=== PATIENT | male | born 1955 | race Two or more races ===

== ENCOUNTER 2020-05-30 13:55 | Inpatient (IN) | payer OTHER ==
[~2020-05-30] VITALS: Ht 167.6 cm; Wt 64.0 kg
[2020-05-30] MEDS ORDERED: IV NS 0.9% 1,000 ML IV ONE (14:02)
--- NOTE | 2020-05-30 14:05 | NUR ---
Patient BIBra 102, from home, c/o headache and hypotension 77/40, on room air, breathing evenly and unlabored. connected to the monitor and pulse ox. kept comfortable, will continue to monitor accordingly.
[2020-05-30] MEDS ORDERED: CEFTRIAXONE 1GM BAG (ER ONLY) 50 ML IV ONE (14:10)
--- NOTE | 2020-05-30 14:15 | NUR ---
Lighting Specialist at bedside for blood draw.
--- NOTE | 2020-05-30 14:20 | NUR ---
EKG MACHINE NOT WORKING PROPERLY. UNABLE TO INFORM MD SINCE SHE IS RUNNING [employer]
[2020-05-30 14:30] LABS: BASOPHILS % (AUTO) 0.5 % (0.0-2.0); EOSINOPHILS % (AUTO) 2.5 % (0.0-6.0); HEMATOCRIT 25 % (39-51); HEMOGLOBIN 8.4 g/dL (13.5-17.5); LYMPHOCYTES # (AUTO) 0.6 /CMM (0.8-4.8); LYMPHOCYTES % (AUTO) 9.7 % (20.0-44.0); MEAN CORPUSCULAR HGB CONC 34 g/dl (31.0-36.0); MEAN CORPUSCULAR VOLUME 89 fL (80-96); MONOCYTES # (AUTO) 0.5 /CMM (0.1-1.30); MONOCYTES % (AUTO) 8.6 % (2.0-12.0); NEUTROPHILS # (AUTO) 4.8 /CMM (1.8-8.9); NEUTROPHILS % (AUTO) 78.7 % (43.0-81.0); PLATELET COUNT (AUTO) 211 /CMM (150-450); RED BLOOD CELL COUNT(AUTO) 2.75 MIL/uL (4.5-6.0); WHITE BLOOD COUNT (AUTO) 6.1 K/uL (4.3-11.0)
[2020-05-30] MEDS ORDERED: CEFTRIAXONE 1GM BAG (ER ONLY) 1 GM/50 ML PIGGYBACK IV ONE (14:30)
--- NOTE | 2020-05-30 14:30 | NUR ---
MADE AWARE OF ISSUE WITH EKG MACHINE. BIOMED CONTACTED AND ON THE WAY TO ER.
[2020-05-30 14:39] LABS: CALCIUM, SERUM 7.7 mg/dL (8.5-10.1); CARBON DIOXIDE 29 mmol/L (21-32); CHLORIDE 94 mmol/L (98-107); CREATININE 4.5 mg/dL (0.6-1.3); GLUCOSE 195 mg/dL (74-106); POTASSIUM 3.8 mmol/L (3.5-5.1); SODIUM SERUM 132 mmol/L (136-145); UREA NITROGEN, BLOOD 41 mg/dL (7-18)
[2020-05-30 14:53] LABS: ALANINE AMINOTRANSFERASE 21 U/L (12-78); ALBUMIN 3.2 g/dL (3.4-5.0); ALKALINE PHOSPHATASE 105 U/L (46-116); ASPARTATE AMINOTRANSFERASE 18 U/L (15-37); B-TYPE NATRIURETIC PEPTIDE 35317 PG/ML (0-125); BILIRUBIN,TOTAL 0.4 mg/dL (0.2-1.0); TOTAL PROTEIN, SERUM 7.2 g/dL (6.4-8.2)
[2020-05-30 15:12] LABS: CREATINE KINASE, TOTAL 512 U/L (39-308)
[2020-05-30 15:18] LABS: C-REACTIVE PROTEIN < 0.2 mg/dL (0.0-0.9)
[2020-05-30 15:21] LABS: D-DIMER 6.12 mg/L(FEU (0.17-0.50)
--- NOTE | 2020-05-30 15:45 | NUR ---
MOVE SHEET SUBMITTED
[2020-05-30] MEDS ORDERED: HYDROCODONE/APAP 5/325MG TABLET ONE (15:56)
[2020-05-30] MEDS ORDERED: HYDROCODONE/APAP 5/325MG TABLET PO ONE (16:00)
--- NOTE | 2020-05-30 16:10 | NUR ---
received a call from Victoria (yosef GUERRERO) and report given and will call back for more info.
[2020-05-30] MEDS ORDERED: GLIM1TAB18 PO (16:30)
[2020-05-30] MEDS ORDERED: ACET325C7 PO (16:30)
[2020-05-30] MEDS ORDERED: ESCI5TAB PO (16:30)
[2020-05-30] MEDS ORDERED: FLUT16SP NS (16:30)
[2020-05-30] MEDS ORDERED: ALBU8.5H8 IH (16:30)
[2020-05-30] MEDS ORDERED: ATOR40TA PO (16:30)
[2020-05-30] MEDS ORDERED: NIFE30TA91 PO (16:30)
[2020-05-30] MEDS ORDERED: FERR325T30 PO (16:30)
[2020-05-30] MEDS ORDERED: ALPR0.255 PO (16:30)
--- NOTE | 2020-05-30 16:59 | NUR ---
covid 19 swab collected and sent to lab
--- NOTE | 2020-05-30 17:26 | NUR ---
CALLED DR. CLAROS [phone]
--- NOTE | 2020-05-30 18:24 | NUR ---
room 306-2 Addendum: 05/30/20 at 1825 by TBEESTEEEJO room 307-1
[2020-05-30] MEDS ORDERED: ALPRAZOLAM 0.25 MG TABLET PO PRN (18:30)
[2020-05-30] MEDS ORDERED: DEXTROSE 50%-WATER 50 ML DISP.SYRIN IV PRN (18:30)
[2020-05-30] MEDS ORDERED: INSULIN REGULAR, HUMAN 100 UNIT/ML 3 ML VIAL SQ PRN (18:30)
[2020-05-30] MEDS ORDERED: CLONIDINE HCL 0.1 MG TABLET PO PRN (18:30)
[2020-05-30] MEDS ORDERED: ZOLPIDEM TARTRATE 5 MG TABLET PO PRN (18:30)
[2020-05-30] MEDS ORDERED: ACETAMINOPHEN 325 MG TABLET PO PRN (18:30)
--- NOTE | 2020-05-30 18:30 | NUR ---
report given to Elsie RAMIREZ for elizabeth
--- NOTE | 2020-05-30 18:50 | NUR ---
ROOM ASSIGNMENT: 322-2 CALL AFTER 1900 FOR REPORT
--- NOTE | 2020-05-30 18:55 | NUR ---
wheeled patient via gurney accompanied by RN and emt in no distress. RN at bedside to assume care.
[2020-05-30] MEDS ORDERED: ALBUTEROL FS 2.5 MG/0.5 ML VIAL.NEB NEB PRN (19:30)
[2020-05-30 20:00] VITALS: BP 125/69
--- NOTE | 2020-05-30 20:00 | NUR ---
TELE/REIMBURSEMENT COUNSELOR NOTE Patient A/Ox4, ambulatory. Face is symmetrical, tongue midline. No tracheal deviation. Breath sounds even, clear, unlabored on room air. No sob or acute distress noted. Skin is warm, pink, dry, appropriate for ethnicity, intact. Stitches noted in right lower quadrant, clean and intact, no redness. IV site LAC 18g saline locked, patent and intact. Right chest permacath noted, clean and intact. Abdomen small, round, non-distended. Bowel sounds hypoactive in all quadrants. Last BM was 05/29. Patient void via urinal, clear yellow urine without difficulty. Pulses 2+. CRP <3seconds. Mild weakness noted on left lower and upper extremities. Numbness noted in left toes. Full ROM in all extremities, rn manager strength 5+. Bed in low position, wheels locked, side rails up x2, call light within reach.
[2020-05-30] MEDS: BLOOD SUGAR DIAGNOSTIC 1 EACH STRIP IN SCH (21:51)
[2020-05-30] MEDS ORDERED: LATANOPROST EYE DROP 0.005% 2.5 ML BOTTLE EACHEYE SCH (22:00)
[2020-05-30] MEDS ORDERED: ATORVASTATIN 40 MG TABLET PO SCH (22:00)
[2020-05-31 00:30] VITALS: BP 109/58
[2020-05-31 04:00] VITALS: BP 106/66
[2020-05-31] MEDS: BLOOD SUGAR DIAGNOSTIC 1 EACH STRIP IN SCH ×3 (06:32→17:06)
--- NOTE | 2020-05-31 06:51 | NUR ---
TELE/RN CLOSING NOTE Patient A/Ox4, ambulatory. Breath sounds even, clear, unlabored on room air. No sob or acute distress noted. Skin is warm, pink, dry, appropriate for ethnicity, intact. Stitches noted in right lower quadrant, clean and intact, no redness. IV site LAC 18g saline locked, patent and intact. Right chest permacath noted, clean and intact. Patient void via urinal, clear yellow urine without difficulty, 250 ml. No bowel movement this shift. Bed in low position, wheels locked, side rails up x2, call light within reach.
[2020-05-31 08:00] VITALS: BP 124/68
--- NOTE | 2020-05-31 08:30 | NUR ---
RN NOTES RECEIVED PATIENT IN THE BED STABLE REFUSED PAIN, ON O2-2LNC. V/S WNL, SEEN HOSPITALIST Dr NICOLAS NEW ORDER IS DISCHARGE HOME AFTER DIALYSIS. SAFETY PRECAUTION MAINTAINED ALL THE TIME.
[2020-05-31] MEDS ORDERED: ESCITALOPRAM OXALATE (10 MG) 10 MG TABLET PO SCH (09:00)
[2020-05-31] MEDS ORDERED: GLIMEPIRIDE 1 MG TABLET PO SCH (09:00)
[2020-05-31] MEDS ORDERED: FLUTICASONE PROPIONATE 16 GM BOTTLE NS SCH (09:00)
[2020-05-31] MEDS: TIMOLOL 0.25% SOL OPHTH 10 ML BOTTLE EACHEYE SCH ×2 (09:00→17:00)
[2020-05-31] MEDS ORDERED: FERROUS SULFATE (325 MG) 325 MG/TAB TABLET PO SCH (09:00)
--- NOTE | 2020-05-31 10:22 | NUR ---
RN NOTE RECEIVED CALL FROM [facility] REPORTING CK=MB 13.5. ASSIGNED RN ESTER IS MADE AWARE.
--- NOTE | 2020-05-31 12:39 | NUR ---
RN NOTES BS-140 MG/DL REFUSED COVERAGE , REFUSED LUNCH.
--- NOTE | 2020-05-31 13:00 | NUR ---
RN NOTES SEEN PATIENT BY ROLE PLAYER, HEMODIALYSIS CONSENT FORM SIGNED.
--- NOTE | 2020-05-31 16:25 | NUR ---
rn notes patient getting hemodialysis at this time, bs-105 mg/dl.
--- NOTE | 2020-05-31 18:53 | NUR ---
RN NOTES PATIENT HEMODIALYSIS FINISHED OUTPUT WAS 1000L, WILL DISCHARGED HOME SELF CARE. ENDORSED ONCOMING NURSE FOLLOW PLAN OF CARE..
--- NOTE | 2020-05-31 19:22 | NUR ---
metal furniture assembler notes patient discharge at this time going home self care, patient stable, v/s wnl, med reconciliation and discharge orders reviewed and explained to. patient verbalized understanding. patient will follow pcp, belonging with the patient. escorted patient to the lobby for safety.patient steel pickler by uber.
== END 2020-05-31 19:26 | disposition home or self-care (01) | DRG 816 ==
LOC: ER 14:05 → TELE 18:27
PROVIDERS: ADMIT Internal Medicine; ATTEND Internal Medicine
PROC: 5A1D70Z Performance of Urinary Filtration, Intermittent, Less than 6 Hours Per Day (ICD-10-PCS; principal; 2020-05-31)
DX: T46.1X1A Poisoning by calcium-channel blockers, accidental (unintentional), initial encounter (principal); E11.22 Type 2 diabetes mellitus with diabetic chronic kidney disease; N18.6 End stage renal disease; Z99.2 Dependence on renal dialysis; F32.9 Major depressive disorder, single episode, unspecified; E78.5 Hyperlipidemia, unspecified; F41.9 Anxiety disorder, unspecified; I12.0 Hypertensive chronic kidney disease with stage 5 chronic kidney disease or end stage renal disease; J45.909 Unspecified asthma, uncomplicated; D63.1 Anemia in chronic kidney disease; I95.2 Hypotension due to drugs; Y92.009 Unspecified place in unspecified non-institutional (private) residence as the place of occurrence of the external cause; H40.9 Unspecified glaucoma; H54.62 Unqualified visual loss, left eye, normal vision right eye; Z79.84 Long term (current) use of oral hypoglycemic drugs
CPT/HCPCS: 36415; 70450-TC; 71045-TC; 80053-TC; 82550-TC; 82553; 82962-TC; 83605-TC; 83880; 84484-TC; 85025-TC; 85378-TC; 85730-TC; 86140-TC; 87040-TC; 87081-TC; 90935-TC; C9803-CS; G0378; J0696; J1815; J7030

== ENCOUNTER 2021-04-18 09:49 | Inpatient (IN) | payer MEDICARE, OTHER ==
[~2021-04-18] VITALS: Ht 167.6 cm; Wt 57.3 kg
[2021-04-18] VITALS (8 sets, daily range): BP systolic 52–179; BP diastolic 39–93
[~2021-04-18 09:49] MED LIST: ACET325C7 PO; ALBU8.5H8 IH; ALPR0.255 PO; ATOR40TA PO; ESCI5TAB PO; FERR325T30 PO; FLUT16SP; GLIM1TAB18 PO; NIFE30TA91 PO
--- NOTE | 2021-04-18 10:05 | NUR ---
R FOOT/ R KNEE SWELLING SINCE YESTERDAY. LETHARGIC AND WEAK SENIOR ADMINISTRATIVE SERVICES OFFICER. HYPOTENSIVE SENIOR ADMINISTRATIVE SERVICES OFFICER. PATIENT A/OX4, BREATHING EVEN AND UNLABORED, NO SOB NOTED, KEPT COMFORTABLE. PATIENT ABLE TO MOVE RIGHT LOWER EXTREMITY.
--- NOTE | 2021-04-18 10:08 | NUR ---
DR. AMES AT BEDSIDE FOR EVAL
[2021-04-18 10:24] LABS: BASOPHILS # (AUTO) 0.1 K/uL (0.0-0.2); BASOPHILS % (AUTO) 0.2 % (0.0-2.0); EOSINOPHILS % (AUTO) 0.1 % (0.0-6.0); HEMATOCRIT 31 % (39-51); HEMOGLOBIN 10.2 g/dL (13.5-17.5); LYMPHOCYTES # (AUTO) 0.8 K/uL (0.8-4.8); LYMPHOCYTES % (AUTO) 2.2 % (20.0-44.0); MEAN CORPUSCULAR HGB CONC 33 g/dl (31.0-36.0); MEAN CORPUSCULAR VOLUME 93 fL (80-96); MONOCYTES # (AUTO) 0.9 K/uL (0.1-1.30); MONOCYTES % (AUTO) 2.6 % (2.0-12.0); NEUTROPHILS # (AUTO) 33.5 K/uL (1.8-8.9); NEUTROPHILS % (AUTO) 94.9 % (43.0-81.0); PLATELET COUNT (AUTO) 300 K/uL (150-450); RED BLOOD CELL COUNT(AUTO) 3.33 MIL/uL (4.5-6.0)
[2021-04-18 10:26] LABS: CALCIUM, SERUM 8.8 mg/dL (8.5-10.1); CARBON DIOXIDE 22 mmol/L (21-32); CHLORIDE 87 mmol/L (98-107); GLUCOSE 246 mg/dL (74-106); POTASSIUM 3.9 mmol/L (3.5-5.1); SODIUM SERUM 135 mmol/L (136-145); UREA NITROGEN, BLOOD 79 mg/dL (7-18); WHITE BLOOD COUNT (AUTO) 35.2 K/uL (4.3-11.0)
[2021-04-18 10:27] LABS: CREATININE 10.1 mg/dL (0.6-1.3)
[2021-04-18] MEDS ORDERED: VANCOMYCIN 1 GM in IV D5W 250 ML IV ONE (10:30)
--- NOTE | 2021-04-18 10:30 | NUR ---
covid swab sent to lab.
--- NOTE | 2021-04-18 10:31 | NUR ---
patient verbalized that he is anuric.
[2021-04-18] MEDS: PIPERACILLIN /TAZOBACTAM 3.375 G in IV D5W 50 ML IV ONE ×2 (10:35→10:45)
--- NOTE | 2021-04-18 10:45 | NUR ---
BLOOD CULTURE SENT TO LAB. VANESSA STARTED AT 1045.
[2021-04-18 10:57] LABS: ALANINE AMINOTRANSFERASE 89 U/L (12-78); ALBUMIN 2.7 g/dL (3.4-5.0); ALKALINE PHOSPHATASE 177 U/L (46-116); ASPARTATE AMINOTRANSFERASE 57 U/L (15-37); BILIRUBIN,DIRECT 0.8 mg/dL (0.0-0.2); BILIRUBIN,TOTAL 3.3 mg/dL (0.2-1.0); TOTAL PROTEIN, SERUM 7.7 g/dL (6.4-8.2)
[2021-04-18 11:11] LABS: BAND % (MANUAL) 1 % (0.0-5.0); LYMPHOCYTES % (MANUAL) 3 % (16-48); MONOCYTES % (MANUAL) 4 % (0-11.0); NEUTROPHILS % (MANUAL) 90 (42-76)
--- NOTE | 2021-04-18 11:25 | NUR ---
US TECH AT BEDSIDE
[2021-04-18] MEDS ORDERED: CLON0.5T4 PO (11:27)
[2021-04-18] MEDS ORDERED: ASPI-1169 PO (11:27)
[2021-04-18] MEDS ORDERED: HYDR-500 PO (11:27)
[2021-04-18] MEDS ORDERED: DICL100G34 TP (11:27)
[2021-04-18] MEDS ORDERED: DORZ10DR11 EACHEYE (11:27)
[2021-04-18] MEDS ORDERED: TRAM50TA2 PO (11:27)
[2021-04-18] MEDS ORDERED: MELO-105 PO (11:27)
[2021-04-18] MEDS ORDERED: GABA-532 PO (11:27)
[2021-04-18] MEDS ORDERED: CETI10TA14 PO (11:27)
[2021-04-18] MEDS ORDERED: CEPH500C2 PO (11:27)
--- NOTE | 2021-04-18 11:45 | NUR ---
PATIENT IS RESTING, NO DISTRESS NOTED. KEPT COMFORTABLE IN BED, PROVIDED WITH WARM BLANKETS.
[2021-04-18] MEDS ORDERED: CALC667C6 PO (11:53)
--- NOTE | 2021-04-18 12:12 | NUR ---
NURSING SUP GAVE 309-1.
--- NOTE | 2021-04-18 12:14 | NUR ---
NURSING SUP GAVE UPDATED BED TO 311-1. NURSE IS ARELY.
--- NOTE | 2021-04-18 12:40 | NUR ---
Dr. Aparicio aware of troponin level, no order for aspirin at this time, per MD he'll wait for Dr. Guerrero to decide.
--- NOTE | 2021-04-18 12:45 | NUR ---
REPORT GIVEN TO ARELY RAMIREZ FOR MARIAH
--- NOTE | 2021-04-18 12:50 | NUR ---
PT. BROUGHT UP FROM ER.MADE COMFORTABLE.VS TAKEN HOOKED UP TO TELE RHYTHM SINUS RATE OF 80.
--- NOTE | 2021-04-18 13:01 | NUR ---
Patient transferred to room 311-1 via acls protocol, a/ox4, in stable condition. BP borderline low but patient is asymptomatic, denies any pain and verbally responsive. Endorsed to Brody charge nurse. Walker, shoes and shirt at bedside, endorsed to Daniela barrera.
[2021-04-18] MEDS ORDERED: clonazePAM 0.5 MG TABLET PO PRN (15:00)
[2021-04-18] MEDS ORDERED: ONDANSETRON HCL/PF 4 MG/2 ML VIAL IV PRN (15:00)
[2021-04-18] MEDS ORDERED: ASPIRIN EC 81 MG TABLET.DR PO ONE (15:00)
[2021-04-18] MEDS ORDERED: ALBUTEROL SULFATE INH 18 GM HFA.AER.AD IH PRN (15:00)
[2021-04-18] MEDS ORDERED: TRAMADOL HCL 50 MG TABLET PO PRN (15:00)
[2021-04-18] MEDS ORDERED: DEXTROSE 50%-WATER 50 ML DISP.SYRIN IV PRN (15:00)
--- NOTE | 2021-04-18 15:15 | NUR ---
DR. Tiana FRANCES HERE AND ORDERS GIVEN.
[2021-04-18] MEDS ORDERED: VANCOMYCIN POST DIALYSIS 500MG IV PRN (15:30)
[2021-04-18] MEDS ORDERED: HEPARIN SODIUM, PORCINE 5000 UNITS/1 ML VIAL SQ SCH (16:00)
[2021-04-18] MEDS: BLOOD SUGAR DIAGNOSTIC 1 EACH STRIP VI SCH ×3 (16:33→22:17)
[2021-04-18] MEDS: INSULIN REGULAR, HUMAN 100 UNIT/ML 3 ML VIAL SQ PRN (16:37)
[2021-04-18] MEDS: GABAPENTIN 100 MG CAPSULE PO SCH (16:54)
[2021-04-18] MEDS: TIMOLOL MAL/DORZOLAM HCL OPHTH 10 ML BOTTLE EACHEYE SCH (16:55)
[2021-04-18] MEDS ORDERED: CARVEDILOL 12.5 MG TABLET PO SCH (17:00)
--- NOTE | 2021-04-18 17:50 | NUR ---
PHOTOS TAKEN AND PLACED IN CHART.
--- NOTE | 2021-04-18 18:00 | NUR ---
DR. FRANCES NOTIFIED OF LATEST LACTIC ACID LEVEL AND 3 PM TROPONIN.
--- NOTE | 2021-04-18 18:50 | NUR ---
UNABLE TO OBTAIN URINE SAMPLE AT THIS TIME,PT. STATES UNABLE TO VOID.
--- NOTE | 2021-04-18 19:00 | NUR ---
DIALYSIS CONSENT OBTAINED.
--- NOTE | 2021-04-18 19:46 | NUR ---
RN NOTES PT RECEIVED ASLEEP IN BED PT IN NO RESPIRATORY DISTRESS OR PAIN AT THIS TIME. PT NOTED WITH RIGHT CHEST WALL HD CATH AND PREMATURE AV FISTULA ON THE LEFT ARM. ALL PT NEEDS MET AT THIS TIME. SAFETY PRECAUTIONS FOLLOWED AT ALL TIMES. CALL LIGHT AND TABLE WITHIN REACH WILL CONTINUE TO MONITOR.
--- NOTE | 2021-04-18 20:30 | NUR ---
RN NOTES PT B/P 62/39 RECHECKED 59/52 PT STILL RESPONSIVE BUT ANXIOUS CONTACTED DOCTOR YVROSE. RECEIVED ORDERS TO GIVE 500 CC NS BOLUS AND TRANSFER PT TO ICU ORDERS NOTED.
--- NOTE | 2021-04-18 20:45 | NUR ---
RN NOTES PT TRANSFERRED TO ICU WITH ACLS PROTOCOL. PHYSICAL THERAPY TEACHER CALLED PT WAS DESATURATING PUT ON A NON REBREATHER.
[2021-04-18] MEDS ORDERED: IV NS 0.9% 500 ML IV ONE ×2 (21:00→22:00)
--- NOTE | 2021-04-18 21:10 | NUR ---
RN NOTE RECEIVED PATIENT IN BED RESTING LETHARGIC, A/OX1 ONLY NAME,ON 3L OXYGEN VIA NASAL CANNULA O2:100% IV SITE IS ON RIGHT AC INTACT PATENT AND RIGHT PERM-CATH FOR HD,LEFT SIDE WEAKNESS NOT BP AND LAB DRAW ON LEFT SIDE,SAFETY MEASURE IMPLEMENT BED IN LOW POSITON AND LOCKED CONTINUE TO MONITOR
[2021-04-18] MEDS: ZOSYN IVPB 2.25 G in IV D5W 50ml IV SCH (21:22)
[2021-04-18] MEDS ORDERED: ATORVASTATIN 40 MG TABLET PO SCH ×2 (22:00)
--- NOTE | 2021-04-18 22:00 | NUR ---
RN NOTE LIPITOR NOT GIVEN DUE TO PATIENT CONDITION "LETHARGIC" CONTINUE TO MONITOR.
[2021-04-18] MEDS: *INSULIN REGULAR(HUMULIN R)HUM 100 UNIT/ML VIAL SQ PRN (22:18)
--- NOTE | 2021-04-18 23:57 | NUR ---
RN NOTE RECEIVED CRITICAL LAB RESULTS TROPONIN 2.[address] YVROSE FLOR HE ORDERED MONITOR,CONTINUE TO MONITOR.
[2021-04-19] VITALS (131 sets, daily range): BP systolic 43–214; BP diastolic 18–143
[2021-04-19] MEDS ORDERED: NOREPINEPHRINE 8MG/250ML RTU 250 ML IV ONE (03:30)
[2021-04-19] MEDS: NOREPINEPHRINE 8 MG in IV NS 0.9% 242 ML IV PRN ×4 (03:34→18:47)
--- NOTE | 2021-04-19 03:34 | NUR ---
RN NOTE STARTED LEVOPHED 0.1MCG/KG/MIN BP 66/40 HR 68 CONTINUE TO MONITOR.
[2021-04-19 04:41] LABS: BASOPHILS % (AUTO) 0.2 % (0.0-2.0); HEMATOCRIT 27 % (39-51); HEMOGLOBIN 9.1 g/dL (13.5-17.5); LYMPHOCYTES # (AUTO) 0.7 K/uL (0.8-4.8); LYMPHOCYTES % (AUTO) 2.6 % (20.0-44.0); MEAN CORPUSCULAR HGB CONC 33 g/dl (31.0-36.0); MEAN CORPUSCULAR VOLUME 93 fL (80-96); MONOCYTES # (AUTO) 1.3 K/uL (0.1-1.30); MONOCYTES % (AUTO) 4.9 % (2.0-12.0); NEUTROPHILS # (AUTO) 24.2 K/uL (1.8-8.9); NEUTROPHILS % (AUTO) 92.3 % (43.0-81.0); PLATELET COUNT (AUTO) 251 K/uL (150-450); RED BLOOD CELL COUNT(AUTO) 2.93 MIL/uL (4.5-6.0); WHITE BLOOD COUNT (AUTO) 26.2 K/uL (4.3-11.0)
[2021-04-19 05:01] LABS: ALANINE AMINOTRANSFERASE 80 U/L (12-78); ALBUMIN 1.8 g/dL (3.4-5.0); ALKALINE PHOSPHATASE 152 U/L (46-116); ASPARTATE AMINOTRANSFERASE 119 U/L (15-37); BILIRUBIN,TOTAL 2.8 mg/dL (0.2-1.0); CALCIUM, SERUM 7.6 mg/dL (8.5-10.1); CARBON DIOXIDE 20 mmol/L (21-32); CHLORIDE 89 mmol/L (98-107); GLUCOSE 136 mg/dL (74-106); MAGNESIUM 2.9 mg/dL (1.8-2.4); POTASSIUM 4.8 mmol/L (3.5-5.1); SODIUM SERUM 135 mmol/L (136-145); TOTAL PROTEIN, SERUM 6.5 g/dL (6.4-8.2)
[2021-04-19] MEDS: ZOSYN IVPB 2.25 G in IV D5W 50ml IV SCH ×3 (05:01→21:00)
[2021-04-19 05:10] LABS: BAND % (MANUAL) 16 % (0.0-5.0); BASOPHILS % (MANUAL) 0 % (0.0-2.0); EOSINOPHILS % (MANUAL) 0 % (0-4); LYMPHOCYTES % (MANUAL) 3 % (16-48); METAMYELOCYTES % 1 % (0-0); MONOCYTES % (MANUAL) 10 % (0-11.0); NEUTROPHILS % (MANUAL) 70 (42-76)
[2021-04-19 05:42] LABS: CREATININE 10.5 mg/dL (0.6-1.3); UREA NITROGEN, BLOOD 96 mg/dL (7-18)
[2021-04-19 05:43] LABS: PHOSPHORUS > 9.0 mg/dL (2.5-4.9)
--- NOTE | 2021-04-19 06:33 | NUR ---
RN NOTED PATIENT REMAINS ON LETHARGIC EYE CLOSED ON LEVOPHED 0.3MCG/KG/MIN IV SITE IS ON RIGHT AC AND RIGHT WRIST INTACT PATENT,RIGHT UPPER CHEST HD CATH,ON 2L OXYGEN VIA NASAL CANNULA O2:99% NO BP NO LAB DRAW ON LEFT ARM FOR OLD FISULA,NO URINE NOTED ONE BOWEL MOVEMENT IN SOLE STAPLER WELT,ALL DUE IV MEDS GIVEN HELD PO MEDS,KEPT CLEAN AND DRY ALL THE TIME,ALL NEEDS MET ENDORSE NEXT COMING SHIFT FOR CONTINUATION OF CARE
--- NOTE | 2021-04-19 07:54 | NUR ---
rn notes Get order via hospitalist midline insertion. seen patient via wound nurse patient need Isoflex bed, take a picture on right knee open wound. patient right leg swollen, and painful during touching.elevated using pillows. patient confused, has psoriases upper and lower extremities, anuric , assist turn and reposition q 2 hr.
--- NOTE | 2021-04-19 08:15 | NUR ---
WOUND CARE CONSULT: PT PRESENTS WITH RT KNEE DISCOLORATION AND DRY ESCHARS/DRY ABRASIONS WITH PROFOUND EDEMA FROM RT THIGH TO RT FOOT WITH INTACT BLISTER TO RT DORSAL FOOT, PRESENT ON ADMISSION. PT ALSO NOTED TO HAVE SKIN LESIONS TO LEFT ARM, PRESENT ON ADMISSION. DEFER TO PMD FOR SKIN CONDITION AND KNEE. RECOMMENDATIONS MADE FOR SKIN PROTECTION. DISCUSSED WITH NURSING STAFF. PT IS INCONTINENT OF STOOL. MD IN AGREEMENT WITH PLAN OF CARE.
[2021-04-19] MEDS ORDERED: Z GUARD REMEDY 2 OZ OINT TP PRN (08:30)
--- NOTE | 2021-04-19 08:45 | NUR ---
rn notes patient get order heparin infusion via machine printer hose Dr Wasserman. get stat order ptt .
--- NOTE | 2021-04-19 08:50 | NUR ---
rn notes seen patient via nocturnist Dr Lubin, patient will have HD today.
[2021-04-19] MEDS ORDERED: EPOETIN ALFA (10,000 UNIT) 10,000 UNIT/ML VIAL IV ONE (09:00)
[2021-04-19] MEDS ORDERED: ASPIRIN EC 81 MG TABLET.DR PO SCH (09:00)
[2021-04-19] MEDS ORDERED: ALBUMIN 5% 12.5 GM in PREMIX 1 EA IV STA (10:06)
[2021-04-19] MEDS: BLOOD SUGAR DIAGNOSTIC 1 EACH STRIP VI SCH ×4 (10:13→21:00)
[2021-04-19] MEDS: GABAPENTIN 100 MG CAPSULE PO SCH ×2 (10:17→17:24)
[2021-04-19] MEDS: cetrizine 10 MG TABLET PO SCH (10:17)
[2021-04-19] MEDS: PANTOPRAZOLE 40 MG TABLET.DR PO SCH (10:18)
[2021-04-19] MEDS: SEVELAMER CARBONATE 800 MG POWD.PACK GT SCH ×3 (10:18→17:24)
[2021-04-19] MEDS: HYDROCORTISONE SOD SUCCINATE 100 MG/2 ML VIAL IV SCH ×3 (10:18→21:00)
[2021-04-19] MEDS: ASPIRIN 81 MG TAB.CHEW PO SCH (10:22)
[2021-04-19] MEDS: Z GUARD REMEDY 2 OZ OINT TP SCH (10:25)
[2021-04-19] MEDS ORDERED: ALBUMIN 25% 50 ML IV ONE (10:30)
[2021-04-19] MEDS: HEPARIN INFUSION/D5W 500 ML IV PRN (11:01)
--- NOTE | 2021-04-19 11:01 | NUR ---
rn notes started heparin infusion on right ac area iv access on 850units/hr. seen hospitalist Dr Guerrero. patient getting ortho physician consultation, because of right leg swollen,discoloration, and painful to touch, keep it elevated using pillows.
--- NOTE | 2021-04-19 12:20 | NUR ---
RN NOTES PATIENT GETTING BILATERAL ARTERIAL DOPPLER LOWER EXTREMITIES US AT THIS TIME.
[2021-04-19] MEDS: FLUDROCORTISONE 0.1 MG TABLET PO SCH ×2 (12:21→17:25)
[2021-04-19] MEDS: NEPRO VAN 237 ML CAN PO PRN (12:55)
[2021-04-19] MEDS: FLUTICASONE PROPIONATE 16 GM BOTTLE NS SCH (12:59)
[2021-04-19] MEDS: TIMOLOL MAL/DORZOLAM HCL OPHTH 10 ML BOTTLE EACHEYE SCH ×2 (12:59→17:25)
[2021-04-19] MEDS: HYDROCODONE/APAP 5/325MG TABLET PO PRN (13:01)
[2021-04-19] MEDS: *INSULIN REGULAR(HUMULIN R)HUM 100 UNIT/ML VIAL SQ PRN (13:01)
--- NOTE | 2021-04-19 13:01 | NUR ---
RN NOTES ADMINISTERED NARCO 5/325 MG PO PRN FOR GENERALIZED PAIN 03/11 PER PATIENT , BP 98/50, P-84. BS-187 MG/DL COVERAGE. GIVEN PATIENT EATING LUNCH.
--- NOTE | 2021-04-19 13:49 | NUR ---
RN NOTES PATIENT GETTING HD AT THIS TIME. VS 107/48, P-83, R-17, T-97.8. PATIENT TOLERATED LUNCH 20% WITH ASSIST, DUE MEDICATION ADMINISTERED. WILL MONITORING.
[2021-04-19] MEDS ORDERED: EPOETIN ALFA-EPBX 10,000 UNIT/ML VIAL SQ ONE (15:00)
--- NOTE | 2021-04-19 16:51 | NUR ---
rn notes HD finished at this time, output was 1000ml.
[2021-04-19] MEDS ORDERED: ENSURE ENLIVE CHOC 237 ML CAN PO SCH (17:00)
--- NOTE | 2021-04-19 18:00 | NUR ---
RN NOTES HOLD HEPARIN INFUSION 60MINS, PER HEPARIN DOSING ORDERS, BECAUSE OF PTT RESULT IS 124.6. WILL STARTED BACK ON 1899, PTT WILL RECHECKED ON 0AM.
[2021-04-19] MEDS: INSULIN REGULAR, HUMAN 100 UNIT/ML 3 ML VIAL SQ PRN ×2 (18:46→21:19)
--- NOTE | 2021-04-19 19:00 | NUR ---
RN NOTES PATIENT EATING AT THIS TIME WITH ASSIST, TOLERATED 2%, VSS, NO COMPLAINING OF PAIN . INFUSING VANCOMYCIN 100ML/HR, AND LEVOPHED 0.4 MCG/KG/HR. BS-185 MG/DL COVERAGE GIVEN, DUE MEDICATION ADMINISTERED. SEEN PATIENT VIA ORTHO MD NO NEW ORDER, AND HE WILL FOLLOW UP PATIENT TOMORROW. ASSIST TURN AND REPOSTION Q 2 HR. RESTARTED HEPARIN DRIP AT THIS TIME 850 UNITS.
[2021-04-19] MEDS: HYDROMORPHONE 1 MG/1 ML DISP.SYRIN IV PRN (19:57)
[2021-04-20] VITALS (98 sets, daily range): BP systolic 71–174; BP diastolic 34–99
[2021-04-20] MEDS: FLUDROCORTISONE 0.1 MG TABLET PO SCH ×4 (00:05→17:39)
[2021-04-20] MEDS: NOREPINEPHRINE 8 MG in IV NS 0.9% 242 ML IV PRN ×2 (03:36→18:32)
--- NOTE | 2021-04-20 04:24 | NUR ---
patient had 3 episodes of diarrhea on my shift. Stool collected and sent to Lab for CDiff
[2021-04-20] MEDS: IV NS 0.9% 250 ML IV PRN (05:05)
[2021-04-20 05:07] LABS: BASOPHILS % (AUTO) 0.1 % (0.0-2.0); EOSINOPHILS % (AUTO) 0.4 % (0.0-6.0); HEMATOCRIT 27 % (39-51); HEMOGLOBIN 8.8 g/dL (13.5-17.5); LYMPHOCYTES # (AUTO) 0.6 K/uL (0.8-4.8); LYMPHOCYTES % (AUTO) 1.8 % (20.0-44.0); MEAN CORPUSCULAR HGB CONC 33 g/dl (31.0-36.0); MEAN CORPUSCULAR VOLUME 94 fL (80-96); MONOCYTES # (AUTO) 1.5 K/uL (0.1-1.30); MONOCYTES % (AUTO) 4.7 % (2.0-12.0); NEUTROPHILS # (AUTO) 30.3 K/uL (1.8-8.9); PLATELET COUNT (AUTO) 269 K/uL (150-450); RED BLOOD CELL COUNT(AUTO) 2.87 MIL/uL (4.5-6.0)
[2021-04-20 05:22] LABS: ALBUMIN 1.6 g/dL (3.4-5.0); MAGNESIUM 2.9 mg/dL (1.8-2.4); TOTAL PROTEIN, SERUM 6.6 g/dL (6.4-8.2)
[2021-04-20 05:23] LABS: POTASSIUM 4.6 mmol/L (3.5-5.1)
[2021-04-20] MEDS: HYDROCORTISONE SOD SUCCINATE 100 MG/2 ML VIAL IV SCH ×3 (05:23→20:55)
[2021-04-20] MEDS: ZOSYN IVPB 2.25 G in IV D5W 50ml IV SCH (05:23)
[2021-04-20 05:24] LABS: BILIRUBIN,TOTAL 1.9 mg/dL (0.2-1.0); CALCIUM, SERUM 8.8 mg/dL (8.5-10.1); CREATININE 6.7 mg/dL (0.6-1.3); PHOSPHORUS 6.8 mg/dL (2.5-4.9)
[2021-04-20 05:32] LABS: WHITE BLOOD COUNT (AUTO) 32.5 K/uL (4.3-11.0)
[2021-04-20 05:36] LABS: BAND % (MANUAL) 14 % (0.0-5.0); EOSINOPHILS % (MANUAL) 1 % (0-4); LYMPHOCYTES % (MANUAL) 3 % (16-48); METAMYELOCYTES % 1 % (0-0); MONOCYTES % (MANUAL) 4 % (0-11.0); MYELOCYTES % 1 % (0-0); NEUTROPHILS % (MANUAL) 76 (42-76)
[2021-04-20] MEDS: BLOOD SUGAR DIAGNOSTIC 1 EACH STRIP VI SCH ×4 (07:58→22:47)
[2021-04-20] MEDS: INSULIN REGULAR, HUMAN 100 UNIT/ML 3 ML VIAL SQ PRN ×4 (07:59→22:55)
[2021-04-20] MEDS: FLUTICASONE PROPIONATE 16 GM BOTTLE NS SCH (08:49)
[2021-04-20] MEDS: SEVELAMER CARBONATE 800 MG POWD.PACK GT SCH ×3 (08:50→17:39)
[2021-04-20] MEDS: PANTOPRAZOLE 40 MG TABLET.DR PO SCH (08:51)
[2021-04-20] MEDS: cetrizine 10 MG TABLET PO SCH (08:51)
[2021-04-20] MEDS: GABAPENTIN 100 MG CAPSULE PO SCH ×2 (08:51→17:39)
[2021-04-20] MEDS: TIMOLOL MAL/DORZOLAM HCL OPHTH 10 ML BOTTLE EACHEYE SCH ×2 (08:51→17:39)
[2021-04-20] MEDS: Z GUARD REMEDY 2 OZ OINT TP SCH (08:51)
[2021-04-20] MEDS: ASPIRIN 81 MG TAB.CHEW PO SCH (08:51)
[2021-04-20] MEDS: INSULIN GLARGINE, 100 UNIT/ML CARTRIDGE SQ SCH (12:33)
[2021-04-20] MEDS: CEFEPIME 1 GM in IV D5W 50 ML IV SCH (13:25)
[2021-04-20] MEDS: METRONIDAZOLE 500 MG TABLET PO SCH ×2 (14:09→20:55)
[2021-04-20] MEDS: HEPARIN INFUSION/D5W 500 ML IV PRN (18:31)
--- NOTE | 2021-04-20 18:44 | NUR ---
RN NOTE 0715: Received patietn lethargic. With BERNARDA midline intact, with Heparin 650u/hr, Levo 0.1, will titrate as ordered. RSC HD cath intact. Right leg enlarged due to cellulitis, noted with blisters. 0930: S/E by Dr. Dee, no new order at this time. 1200: S/E by Dr. Guerrero, with order of MRCP. Noted with x2 BM but not watery at this time. 1600: done with MRCP, no any significant changes noted. 183: Still on Levo at 0.1, see IV spreadsheet for titration. Able to eat 75% for dinner. Kept clean, warm and dry. Needs attended. Still lethargic.
--- NOTE | 2021-04-20 19:30 | NUR ---
RN NOTES Received patient in bed AOX2, on 2l O2 sat via NC. Breathing normal no SOB noted. Respiration even non labored. Skin warm and dry to touch. IV's intact Gigi is running at 0.1 and heparin running at 600u/hr tolerating well. RT perm cath for HD intact no bleeding noted.Tele monitor SR in 70s. Safety measures in place, call light within reach. Will cont to monitor for elizabeth.
[2021-04-21] VITALS (103 sets, daily range): BP systolic 59–179; BP diastolic 13–105
[2021-04-21 04:17] LABS: BASOPHILS % (AUTO) 0.1 % (0.0-2.0); EOSINOPHILS % (AUTO) 0.1 % (0.0-6.0); HEMATOCRIT 27 % (39-51); LYMPHOCYTES # (AUTO) 0.7 K/uL (0.8-4.8); MEAN CORPUSCULAR HGB CONC 33 g/dl (31.0-36.0); MEAN CORPUSCULAR VOLUME 93 fL (80-96); MONOCYTES # (AUTO) 0.8 K/uL (0.1-1.30); MONOCYTES % (AUTO) 2.4 % (2.0-12.0); NEUTROPHILS # (AUTO) 33.9 K/uL (1.8-8.9); NEUTROPHILS % (AUTO) 95.4 % (43.0-81.0); PLATELET COUNT (AUTO) 169 K/uL (150-450); RED BLOOD CELL COUNT(AUTO) 2.95 MIL/uL (4.5-6.0)
[2021-04-21 04:28] LABS: WHITE BLOOD COUNT (AUTO) 35.5 K/uL (4.3-11.0)
[2021-04-21] MEDS: HYDROCORTISONE SOD SUCCINATE 100 MG/2 ML VIAL IV SCH ×3 (05:00→11:17)
[2021-04-21] MEDS: METRONIDAZOLE 500 MG TABLET PO SCH ×3 (05:00→21:09)
[2021-04-21 05:11] LABS: BAND % (MANUAL) 29 % (0.0-5.0); EOSINOPHILS % (MANUAL) 0 % (0-4); LYMPHOCYTES % (MANUAL) 2 % (16-48); METAMYELOCYTES % 5 % (0-0); MONOCYTES % (MANUAL) 2 % (0-11.0); NEUTROPHILS % (MANUAL) 62 (42-76)
[2021-04-21 05:26] LABS: BILIRUBIN,TOTAL 1.6 mg/dL (0.2-1.0); CALCIUM, SERUM 8.9 mg/dL (8.5-10.1); CREATININE 7.3 mg/dL (0.6-1.3); POTASSIUM 4.6 mmol/L (3.5-5.1); TOTAL PROTEIN, SERUM 6.6 g/dL (6.4-8.2)
[2021-04-21 06:07] LABS: ALBUMIN 1.5 g/dL (3.4-5.0)
--- NOTE | 2021-04-21 07:11 | NUR ---
RN NOTES No changes noted during shift cont with IV drips tolerating well. Breathing normal no SOB noted , respiration even non labored. IV'S intact no s/s of bleeding noted. AM care provided, kept clean and comfortable. RT perm cath for HD intact no bleeding noted. Safety measures in place, call light within reach. Will endorse to AM nurse for elizabeth.
[2021-04-21] MEDS: SEVELAMER CARBONATE 800 MG POWD.PACK GT SCH ×3 (07:42→17:31)
[2021-04-21] MEDS: PANTOPRAZOLE 40 MG TABLET.DR PO SCH (07:42)
[2021-04-21] MEDS: BLOOD SUGAR DIAGNOSTIC 1 EACH STRIP VI SCH ×4 (08:00→21:24)
[2021-04-21] MEDS: INSULIN REGULAR, HUMAN 100 UNIT/ML 3 ML VIAL SQ PRN ×2 (08:00→11:22)
[2021-04-21] MEDS: cetrizine 10 MG TABLET PO SCH (08:06)
[2021-04-21] MEDS: GABAPENTIN 100 MG CAPSULE PO SCH ×2 (08:06→17:31)
[2021-04-21] MEDS: ASPIRIN 81 MG TAB.CHEW PO SCH (08:07)
[2021-04-21] MEDS: FLUDROCORTISONE 0.1 MG TABLET PO SCH ×2 (08:07→17:31)
[2021-04-21] MEDS: FLUTICASONE PROPIONATE 16 GM BOTTLE NS SCH (08:07)
[2021-04-21] MEDS: TIMOLOL MAL/DORZOLAM HCL OPHTH 10 ML BOTTLE EACHEYE SCH ×2 (08:08→17:42)
[2021-04-21] MEDS: Z GUARD REMEDY 2 OZ OINT TP SCH (08:09)
[2021-04-21] MEDS: INSULIN GLARGINE, 100 UNIT/ML CARTRIDGE SQ SCH (08:19)
[2021-04-21] MEDS: INSULIN ASPART/LISPRO 100 UNIT/ML CARTRIDGE SQ SCH ×3 (09:30→17:35)
--- NOTE | 2021-04-21 10:29 | NUR ---
RN NOTE 0715: Received patient lethargic, A/Ox3. With BERNARDA midline intact. On Heparin 600 u/hr and Levo 0.1mcg, will titrate as ordered. Right SC HD cath intact. Right leg swollen. Will take pic per wound nurse, knee discoloration and blisters noted and worse per wound nurse, aware. Titrated off O2 supplement, tolerated room air at this time. Afebrile at this time. 0940: S/E by Dr. Guerrero, new orders carried out. MD aware patient not eating much but able to finish Nepro milk. 1015: S/E by Dr. Lubin, new orders carried out. 1025: No any significant changes noted at this time. Kept clean, warm and dry. Needs attended.
[2021-04-21] MEDS ORDERED: EPOETIN ALFA-EPBX 10,000 UNIT/ML VIAL IV ONE (10:30)
[2021-04-21] MEDS: NEPRO VAN 237 ML CAN PO PRN (11:30)
[2021-04-21] MEDS: CEFEPIME 1 GM in IV D5W 50 ML IV SCH (13:49)
--- NOTE | 2021-04-21 15:27 | NUR ---
RN NOTE HD ongoing. visited, updated re: patient's condition. Endorsed care to Ana Laura RAMIREZ.
--- NOTE | 2021-04-21 15:30 | NUR ---
rn notes patient getting HD at this time, vvs, no acute respiratory distress, will monitoring.
--- NOTE | 2021-04-21 16:25 | NUR ---
holly mata finished HD at this time no output this time just cleaning.
[2021-04-21] MEDS: NOREPINEPHRINE 8 MG in IV NS 0.9% 242 ML IV PRN (17:27)
--- NOTE | 2021-04-21 18:39 | NUR ---
RN NOTES BS-128 MG/DL ADMINISTERED HUMALOG 4 U, DUE MEDICATION ADMINISTERED, SKIN CARE DONE, TOTAL ASSIST EATING DINNER TOLERATED 20%. INFUSING LEVOPHED 0.08 MCG/KG/HR, HEPARIN 600 U, AND NS AT 10ML/HR ON RIGHT MIDLINE. CALL LIGHT WITHIN TO REACH. PATIENT ANURIC, BM X1. CALL LIGHT WITHIN TO REACH. ENDORSED ONCOMING NURSE FOLLOW MARIAH.
--- NOTE | 2021-04-21 19:15 | NUR ---
RN OPENING NOTES: RECEIVED PT A/OX2-3 IN BED RESTING COMFORTABLY. PATIENT IN NO S/SX OF ACUTE DISTRESS AT THIS TIME. NO SOB NOTED. PATIENT'S BREATHING IS EVEN AND UNLABORED. PATIENT IS ON ROOM AIR; TOLERATING WELL WITH 02 SAT OF 98% AT THE TIME OF RECEIVED. PATIENT ON TELE MONITORING READING SINUS RHYTHM HR IS @90s AT THE TIME OF RECEIVED. PATIENT ON RENAL STANDARD DIET; TOLERATES WELL. NOTED IV SITE ON R WRIST #20 AND R UA MIDLINE #18;BOTH PATENT, INTACT AND FLUSHING WELL; NO S/S OF INFECTION OR INFILTRATION. PT ALSO HAS R CHEST HD CATH SECURED AND INTACT NO SIGNS OF INFECTION. PT HAS A RUNNING HEPARIN DRIP @600UNITS/HR (12MLS/HR) PER [facility] PROTOCOL ORDERED. PT ALSO HAS A RUNNING LEVOPHED RECEIVED @0.08MCG/KG/MIN (8.709MLS/HR) MONITORED AND TITRATED PER PROTOCOL. SAFETY MEASURES HAVE BEEN PROVIDED AND IMPLEMENTED. PATIENT BED ALARM IS ON. HEAD OF BED ELEVATED. BED IS LOCKED, IN LOWEST POSITION AND SIDE RAILS UP. CALL LIGHT WITHIN REACH OF THE PATIENT. APPLICABLE ISOLATION PRECAUTIONS IN PLACE. WILL CONTINUE TO MONITOR AND REASSESS FOR ANY CHANGES AND WILL CARRY OUT ANY ONGOING AND ACTIVE MD ORDER.
[2021-04-21] MEDS: *INSULIN REGULAR(HUMULIN R)HUM 100 UNIT/ML VIAL SQ PRN (21:27)
--- NOTE | 2021-04-21 23:00 | NUR ---
RN NOTES PATIENT REMAINED TO BE IN NO SIGNS OF ACUTE RESPIRATORY DISTRESS , VITAL SIGNS WNL AT THIS TIME. WILL CONTINUE TO MONITOR AND REASSESS FOR ANY CHANGES THROUGHOUT THE SHIFT.
[2021-04-22] VITALS (68 sets, daily range): BP systolic 63–138; BP diastolic 31–97
--- NOTE | 2021-04-22 04:00 | NUR ---
RN NOTES NO NOTED CHANGES IN PATIENT CONDITION AT THIS TIME; PATIENT VITALS STABLE, NO SIGNS OF ACUTE RESPIRATORY DISTRESS. AM PATIENT CARE RENDERED. CASHIER RECEPTIONIST MADE AWARE. WILL CONTINUE TO MONITOR AND REASSESS FOR ANY CHANGES THROUGHOUT THE SHIFT.
[2021-04-22] MEDS: METRONIDAZOLE 500 MG TABLET PO SCH ×3 (04:19→20:25)
[2021-04-22 04:45] LABS: BASOPHILS % (AUTO) 0.1 % (0.0-2.0); HEMATOCRIT 26 % (39-51); HEMOGLOBIN 8.5 g/dL (13.5-17.5); LYMPHOCYTES # (AUTO) 0.7 K/uL (0.8-4.8); LYMPHOCYTES % (AUTO) 2.5 % (20.0-44.0); MEAN CORPUSCULAR HGB CONC 33 g/dl (31.0-36.0); MEAN CORPUSCULAR VOLUME 92 fL (80-96); MONOCYTES # (AUTO) 0.6 K/uL (0.1-1.30); MONOCYTES % (AUTO) 2.2 % (2.0-12.0); NEUTROPHILS # (AUTO) 27.9 K/uL (1.8-8.9); NEUTROPHILS % (AUTO) 95.2 % (43.0-81.0); PLATELET COUNT (AUTO) 113 K/uL (150-450); WHITE BLOOD COUNT (AUTO) 29.4 K/uL (4.3-11.0)
[2021-04-22 05:02] LABS: BILIRUBIN,TOTAL 1.4 mg/dL (0.2-1.0); CALCIUM, SERUM 8.4 mg/dL (8.5-10.1); CREATININE 4.7 mg/dL (0.6-1.3); TOTAL PROTEIN, SERUM 6.3 g/dL (6.4-8.2)
--- NOTE | 2021-04-22 05:10 | NUR ---
RN NOTES MARY JANE RAMIREZ, ENDORSED CRITICAL LAB RESULT FROM LAB; ALBUMIN 1.3. INFORMATION SECURITY ENGINEER INFORMED AND MD INFORMED.NO FURTHER ORDERS PER MD.
[2021-04-22 05:14] LABS: ALBUMIN 1.3 g/dL (3.4-5.0)
--- NOTE | 2021-04-22 05:30 | NUR ---
RN NOTES MANUAL BP DONE FOLLOWS: 0530- 110/70 0545: 100/70 0600: 100/80 0630: 110/60
--- NOTE | 2021-04-22 05:45 | NUR ---
RN NOTES APPT RESULT: 4.38; PER HEPARIN DOSING ORDER; CONSIDERING PT'S WEIGHT 58KG AND APPT RESULT OF 43.8 FALLS TO THE CRITERIA : INCREASE RATE BY 100UNITS PER HOUR. CURRENTLY HEPARIN DRIP RUNNING AT 600UNITS PER HOUR, THUS MAKING ADJUSTMENT TO 700UNITS/HR. CASKET COVERER MADE AWARE.
[2021-04-22 06:08] LABS: C-REACTIVE PROTEIN 34.6 mg/dL (0.0-0.9)
--- NOTE | 2021-04-22 06:50 | NUR ---
RN CLOSING NOTES PATIENT REMAINS IN ROOM IN NO SIGNS OF RESPIRATORY DISTRESS, PATIENT STILL ON ROOM AIR ;TOLERATING WELL SATURATING @ >95% SP02. SAFETY MEASURES IMPLEMENTED, BED IN LOWEST POSITION, LOCKED, SIDE RAILS UP, CALL LIGHT WITHIN REACH. ALL NEEDS AND ORDERS ADDRESSED DURING THE SHIFT. IV ACCESS MAINTAINED INTACT, SECURED AND FLUSHING WELL. STILL ON HEPARIN DRIP @700U/HR (14MLS/HR) AND LEVO @0.03MCG/KG/MIN (3.26MLS/HR) BOTH MONITORED PER PROTOCOL. ALL DUE MEDS GIVEN ORDERED & SCHEDULED ; PATIENT TOLERATED WELL. PATIENT KEPT CLEAN AND COMFORTABLE WITHIN THE SHIFT. PATIENT ENDORSED TO INCOMING SHIFT RN WITH STABLE VITAL SIGN AND FOR CONTINUITY OF CARE. Addendum: 04/22/21 at 0717 by KLAUS RAO RN ADDENDUM: DR. RODRIGUEZ ORDERED TO DC STEPHANE ASENCIO; WILL ENDORSE TO AM SHIFT RN AND BINDERY LIBRARY TECHNICAL ASSISTANT.
--- NOTE | 2021-04-22 07:15 | NUR ---
DISEASE MANAGEMENT NURSE OPENING NOTE RECEIVED REPORT FROM PM NURSE.PATIENT I BED,AXOX2 WITH CONFUSION,REASONABLE ,ABLE TO MAKE NEEDS KNOWN.ON ROOM AIR.NO SOB NO DISTRESS NOTED.HEPARIN D/C PER ORDER.NO S/S OF BLEEDING NOTED.IV LINES ARE INTACT AND PATENT FLUSHING WELL.HD CATH ON R UPPER CHEST.R LOWER EXTREMITY SWOLLEN ELEVATED IN A PILLOW.ON MONITOR SR WITH HR IN NORMAL LIMIT.ON LEVO TO MAINTAIN BLOOD PRESSURE.BED IS LOW AND IN LOCKED POSITION.CALL LIGHT IN REACH.BED ALARM ON .SRX3.WILL CONTINUE TO MONITOR.
[2021-04-22] MEDS: PANTOPRAZOLE 40 MG TABLET.DR PO SCH (07:48)
[2021-04-22] MEDS: SEVELAMER CARBONATE 800 MG POWD.PACK GT SCH ×3 (07:48→17:21)
[2021-04-22] MEDS: APIXABAN 2.5 MG TABLET PO SCH ×2 (08:01→17:42)
[2021-04-22] MEDS: INSULIN ASPART/LISPRO 100 UNIT/ML CARTRIDGE SQ SCH ×3 (08:02→17:21)
[2021-04-22] MEDS: BLOOD SUGAR DIAGNOSTIC 1 EACH STRIP VI SCH ×4 (08:08→21:10)
[2021-04-22] MEDS: ASPIRIN 81 MG TAB.CHEW PO SCH (08:52)
[2021-04-22] MEDS: GABAPENTIN 100 MG CAPSULE PO SCH ×2 (08:52→17:22)
[2021-04-22] MEDS: cetrizine 10 MG TABLET PO SCH (08:53)
[2021-04-22] MEDS: FLUDROCORTISONE 0.1 MG TABLET PO SCH ×2 (08:53→17:22)
[2021-04-22] MEDS: HYDROCODONE/APAP 5/325MG TABLET PO PRN (08:53)
[2021-04-22] MEDS: FLUTICASONE PROPIONATE 16 GM BOTTLE NS SCH (08:53)
[2021-04-22] MEDS: TIMOLOL MAL/DORZOLAM HCL OPHTH 10 ML BOTTLE EACHEYE SCH ×2 (08:54→17:21)
[2021-04-22] MEDS: Z GUARD REMEDY 2 OZ OINT TP SCH (08:54)
[2021-04-22] MEDS ORDERED: INSULIN GLARGINE, 100 UNIT/ML CARTRIDGE SQ SCH (09:00)
[2021-04-22] MEDS: NEPRO VAN 237 ML CAN PO SCH ×3 (10:30→20:26)
--- NOTE | 2021-04-22 11:00 | NUR ---
SEEN THE PATIENT,MADE AWARE MRI AWAITING SUPERVISOR OVENS ARELY AWARE,SHE TOLD THAT SHE HAVE TIGHT SCHEDULE TODAY AND WHEN SHE GET A BREAK SHE WILL LET US KNOW. MADE AWARE THAT MRI WILL BE DONE TODAY.
[2021-04-22] MEDS: INSULIN REGULAR, HUMAN 100 UNIT/ML 3 ML VIAL SQ PRN ×2 (11:41→17:21)
[2021-04-22] MEDS: CEFEPIME 1 GM in IV D5W 50 ML IV SCH (12:43)
--- NOTE | 2021-04-22 14:50 | NUR ---
PATIENT OUT FOR MRI R LEG [id number].BACK TO UNIT IN STABLE CONDITION.MRI UPPER LEG WILL DO TOMORROW.PATIENT NOT TOLERATED.
[2021-04-22] MEDS: INSULIN GLARGINE, 100 UNIT/ML CARTRIDGE SQ SCH (17:46)
--- NOTE | 2021-04-22 19:30 | NUR ---
RN NOTE RECEIVED PATIENT IN BED. A/OX2, VERY LETHARGIC. TOLERATING ROOM AIR. RESPIRATIONS ARE EVEN AND UNLABORED. NO S/S SOB NOTED. NO PAIN AT THIS TIME. IN NO APPARENT DISTRESS. IV ACCESS IN RIGHT WRIST PATENT AND SALINE LOCKED, BERNARDA MIDLINE RUNNING LEVO @0.04MCG/KG/MIN. RIGHT UPPER CHEST HD CATH. LEFT HAND AV SHUNT. TELE MONITOR READ SINUS RHTYHM. BED IS LOW AND LOCKED, HOB ELEVATED IN SEMI FOWLERS, SIDE RIALS UP X3, JOSIE LIGHT WITHIN REACH. WILL CONTINUE TO MONITOR THROUGHOUT SHIFT.
--- NOTE | 2021-04-22 19:38 | NUR ---
MRI RESULT RELAYED TO YVROSE ROY WITH FIBRINOGEN LEVEL,HARBOR DEPARTMENT MANAGER MALIA UPDATED ABOUT PATIENT CONDITION.FAMILY KALYN VISITED AND UPDATED ABOUT PATIENT CONDITION.ON LEVO .SAFETY AND ASPIRATION MEASURES IN PLACE.PATENT IS LETHARGIC.VITAL SIGNS STABLE.ENDORSED TO PM NURSE FOR MARIAH.
[2021-04-22] MEDS: *INSULIN REGULAR(HUMULIN R)HUM 100 UNIT/ML VIAL SQ PRN (21:15)
[2021-04-23] VITALS (79 sets, daily range): BP systolic 72–175; BP diastolic 25–84
[2021-04-23 04:52] LABS: BASOPHILS % (AUTO) 0.1 % (0.0-2.0); EOSINOPHILS % (AUTO) 1.7 % (0.0-6.0); HEMATOCRIT 24 % (39-51); HEMOGLOBIN 8.2 g/dL (13.5-17.5); LYMPHOCYTES % (AUTO) 3.9 % (20.0-44.0); MEAN CORPUSCULAR HGB CONC 34 g/dl (31.0-36.0); MEAN CORPUSCULAR VOLUME 92 fL (80-96); MONOCYTES # (AUTO) 0.4 K/uL (0.1-1.30); MONOCYTES % (AUTO) 1.7 % (2.0-12.0); NEUTROPHILS # (AUTO) 22.6 K/uL (1.8-8.9); NEUTROPHILS % (AUTO) 92.6 % (43.0-81.0); PLATELET COUNT (AUTO) 126 K/uL (150-450); RED BLOOD CELL COUNT(AUTO) 2.62 MIL/uL (4.5-6.0); WHITE BLOOD COUNT (AUTO) 24.4 K/uL (4.3-11.0)
[2021-04-23] MEDS: HYDROCODONE/APAP 5/325MG TABLET PO PRN ×2 (04:54→09:09)
[2021-04-23] MEDS: METRONIDAZOLE 500 MG TABLET PO SCH ×3 (04:54→21:07)
[2021-04-23 05:13] LABS: BILIRUBIN,TOTAL 1.3 mg/dL (0.2-1.0); CALCIUM, SERUM 8.4 mg/dL (8.5-10.1); CREATININE 5.7 mg/dL (0.6-1.3); TOTAL PROTEIN, SERUM 6.2 g/dL (6.4-8.2)
[2021-04-23 05:26] LABS: ALBUMIN 1.3 g/dL (3.4-5.0)
--- NOTE | 2021-04-23 06:44 | NUR ---
RN NOTE INFORMED UX ARCHITECT THAT PATIENTS WEIGHT ON BED SCALE SEEMS INCORRECT, WEIGHT ON BED STATES 50LBS. PATIENT LAST WEIGHT IS 128LB. WILL INFORM DAY SHIFT TO PLACE PATIENT ON SAEID LIFT TO ZERO BED.
--- NOTE | 2021-04-23 06:47 | NUR ---
RN NOTE PATIENT RESTING IN BED. A/OX2. TOLERATING ROOM AIR. NO RESP DISTRESS. MANAGED PAIN WITH NORCO 5. NO DISTRESS. IV ACCESSES MAINTAINED. TKO RUNNING. LEFT AV SHUNT. TELE IS SINUS RHTYHM. BED REMAINS LOW AND LOCKED, HOB ELEVATED IN SEMI FOWLERS, SIDE RIALS UP X3, CALL LIGHT WITHIN REACH. OB STOOL COLLECTED. WILL ENDORSE TO ONCOMING SHIFT.
--- NOTE | 2021-04-23 07:20 | NUR ---
DIRECTOR OF PLANT OPERATIONS NOTE RECEIVED PATIENT RESTING IN BED. A/OX2. ON ROOM AIR. NO RESP DISTRESS. IV ACCESS ON BERNARDA MIDLINE, INTACT AND PATENT. NOTED WITH LEFT AV SHUNT FOR HD ACCESS. ON TELE MONITOR SINUS RHTYHM, HR OF 70'S. SAFETY MEASURES MAINTAINTED, BED REMAINS LOW AND LOCKED, HOB ELEVATED IN SEMI FOWLERS, SIDE RIALS UP X3, CALL LIGHT WITHIN REACH. WILL CONTINUE TO MONITOR.
[2021-04-23] MEDS: SEVELAMER CARBONATE 800 MG POWD.PACK GT SCH ×3 (07:34→17:25)
[2021-04-23] MEDS: PANTOPRAZOLE 40 MG TABLET.DR PO SCH (07:34)
[2021-04-23] MEDS: BLOOD SUGAR DIAGNOSTIC 1 EACH STRIP VI SCH ×4 (07:35→21:07)
[2021-04-23] MEDS: INSULIN ASPART/LISPRO 100 UNIT/ML CARTRIDGE SQ SCH ×3 (07:39→19:15)
--- NOTE | 2021-04-23 08:00 | NUR ---
ASSOCIATE PRODUCT MANAGER NOTES ASSISTED THE PATIENT DURING BREAKFAST, PATIENT IS WEAK AND NOT ABLE TO EAT BY HIMSELF. WILL CONTINUE TO MONITOR.
[2021-04-23] MEDS: ASPIRIN 81 MG TAB.CHEW PO SCH (08:20)
[2021-04-23] MEDS: GABAPENTIN 100 MG CAPSULE PO SCH ×2 (08:20→17:25)
[2021-04-23] MEDS: TIMOLOL MAL/DORZOLAM HCL OPHTH 10 ML BOTTLE EACHEYE SCH ×2 (08:20→17:26)
[2021-04-23] MEDS: FLUDROCORTISONE 0.1 MG TABLET PO SCH ×2 (08:20→17:25)
[2021-04-23] MEDS: cetrizine 10 MG TABLET PO SCH (08:20)
[2021-04-23] MEDS: NEPRO VAN 237 ML CAN PO SCH ×4 (08:21→21:07)
[2021-04-23] MEDS: Z GUARD REMEDY 2 OZ OINT TP SCH (08:21)
[2021-04-23] MEDS: FLUTICASONE PROPIONATE 16 GM BOTTLE NS SCH (08:21)
[2021-04-23] MEDS: APIXABAN 2.5 MG TABLET PO SCH (08:23)
[2021-04-23] MEDS: INSULIN GLARGINE, 100 UNIT/ML CARTRIDGE SQ SCH ×2 (08:34→17:27)
--- NOTE | 2021-04-23 10:15 | NUR ---
AIRCRAFT REFUELLER NOTE PT CARE TRANSFERRED TO [place]. BEDSIDE REPORT GIVEN BY RNHARVEY. PT IN STABLE CONDITION, BREATHING RA SPO2 94%, NO S/S OF RESP DISTRESS OR SOB. ALL PT SAFETY PRECAUTIONS IN PLACE, WILL CONT TO MONITOR Addendum: 04/23/21 at 1053 by PRATIBHA HARTMAN RN PT A/Ox2, RLE BRUISING NOTED, KNEE SCAB COVERED IN MEPILEX. BERNARDA MIDLINE AND RT WRIST #20 BOTH FLUSHED AND INTACT. RT UPPER CHEST HD CATH NOTED, INTACT.
[2021-04-23] MEDS ORDERED: EPOETIN ALFA (10,000 UNIT) 10,000 UNIT/ML VIAL IV ONE (11:30)
[2021-04-23] MEDS: *INSULIN REGULAR(HUMULIN R)HUM 100 UNIT/ML VIAL SQ PRN ×2 (11:58→21:50)
[2021-04-23] MEDS: CEFEPIME 1 GM in IV D5W 50 ML IV SCH (12:11)
[2021-04-23] MEDS: NOREPINEPHRINE 8 MG in IV NS 0.9% 242 ML IV PRN (14:03)
[2021-04-23] MEDS ORDERED: VANCOMYCIN 1 GM in IV D5W 250 ML IV ONE (15:00)
--- NOTE | 2021-04-23 15:30 | NUR ---
RN NOTE PT ON HD, STARTED ON LEVO @ 0.02 MCG/KG/MIN D/T LOW BP. WILL MONITOR
--- NOTE | 2021-04-23 17:30 | NUR ---
RN NOTE PT TOLERATED BP WELL. CURRENTLY ON LEVO 0.08 MCG/KG/MIN. 2L REMOVED. WILL CONT TO MONITOR
--- NOTE | 2021-04-23 18:00 | NUR ---
RN NOTE PT HAS NOT EATEN TODAY. BG OF 133, INSULIN REGULAR 2 UNITS HELD
--- NOTE | 2021-04-23 19:00 | NUR ---
RESIDENTIAL TEAM LEADER CLOSING NOTE PT A/Ox1 CURRENTLY, BREATHING RA, SPO2 >94%, NO SOB OR RESP DISTRESS NOTED. DID NOT EAT THIS SHIFT EXCEPT FOR 25% OF LUNCH. CURRENTLY ON LEVO 0.02 MCG/KG/MIN IN BERNARDA MIDLINE. PT DIALYZED TODAY, 2L REMOVED. ALL PT SAFETY PRECAUTIONS IN PLACE, MARIAH ENDORSED TO INFORMATION SYSTEMS PLANNER RN
--- NOTE | 2021-04-23 19:30 | NUR ---
SUBSTATION ENGINEER PT NOTED WITH EXCORIATION AND WHITE DRAINAGE FROM SCROTUM. ALSO NOTED RIGHT THIGH TO RIGHT CALF AREA WITH BLISTERS/ OPEN BLISTERS. LEG IS EDEMATOUS AND WARM TO TOUCH. COVERED LEG W/XEROFORM AND ABD PADS.
[2021-04-23] MEDS: ATORVASTATIN 40 MG TABLET PO SCH (21:07)
[2021-04-24] VITALS (82 sets, daily range): BP systolic 72–140; BP diastolic 28–100
[2021-04-24 04:26] LABS: BASOPHILS # (AUTO) 0.1 K/uL (0.0-0.2); BASOPHILS % (AUTO) 0.3 % (0.0-2.0); HEMATOCRIT 28 % (39-51); HEMOGLOBIN 9.3 g/dL (13.5-17.5); LYMPHOCYTES # (AUTO) 1.2 K/uL (0.8-4.8); LYMPHOCYTES % (AUTO) 4.7 % (20.0-44.0); MEAN CORPUSCULAR HGB CONC 33 g/dl (31.0-36.0); MEAN CORPUSCULAR VOLUME 92 fL (80-96); MONOCYTES # (AUTO) 0.5 K/uL (0.1-1.30); NEUTROPHILS # (AUTO) 24.3 K/uL (1.8-8.9); PLATELET COUNT (AUTO) 173 K/uL (150-450); RED BLOOD CELL COUNT(AUTO) 3.07 MIL/uL (4.5-6.0); WHITE BLOOD COUNT (AUTO) 26.4 K/uL (4.3-11.0)
[2021-04-24 04:42] LABS: CALCIUM, SERUM 8.6 mg/dL (8.5-10.1); CREATININE 4.1 mg/dL (0.6-1.3); MAGNESIUM 2.5 mg/dL (1.8-2.4); PHOSPHORUS 3.1 mg/dL (2.5-4.9); POTASSIUM 4.1 mmol/L (3.5-5.1)
[2021-04-24 04:51] LABS: BAND % (MANUAL) 37 % (0.0-5.0); BASOPHILS % (MANUAL) 0 % (0.0-2.0); EOSINOPHILS % (MANUAL) 2 % (0-4); LYMPHOCYTES % (MANUAL) 7 % (16-48); MONOCYTES % (MANUAL) 6 % (0-11.0); NEUTROPHILS % (MANUAL) 48 (42-76)
[2021-04-24] MEDS: METRONIDAZOLE 500 MG TABLET PO SCH (05:05)
[2021-04-24 05:06] LABS: OCCULT BLOOD STOOL POSITIVE (NEGATIVE)
[2021-04-24 05:07] LABS: OCCULT BLOOD STOOL POSITIVE (NEGATIVE)
[2021-04-24 05:07] LABS: OCCULT BLOOD STOOL POSITIVE (NEGATIVE)
[2021-04-24] MEDS: BLOOD SUGAR DIAGNOSTIC 1 EACH STRIP VI SCH ×4 (07:30→22:51)
--- NOTE | 2021-04-24 07:30 | NUR ---
ROUTE DELIVERY CLERK OPENING NOTE PT A/Ox2 WITH PERIODS OF CONFUSION, IN BED SEMIFOWLER BREATHING RA, NO S/S OF RESP DISTRESS, SPO2 95%. PT RUCW HD CATH NOTED, INTACT, PT RT WRIST #20 INTACT AND FLUSHING WELL, PT BERNARDA MIDLINE NOT PATENT AND UNABLE TO FLUSH. PT RT LEG CELLULITIS/BLISTERS NOTED, SCROTAL LESION NOTED WELL, WILL FOLLOW WOUND CARE ORDERS. ALL PT SAFETY PRECAUTIONS IN PLACE, WILL CONT TO MONITOR
--- NOTE | 2021-04-24 08:00 | NUR ---
WOUND CARE FOLLOW UP: PT SEEN FOR FOLLOW UP ON RT LEG SWELLING, NOW OPEN BLISTERS/LESIONS TO RT LOWER LEG, THIGH AND RT SIDE OF SCROTUM. ENTIRE LEG IS VERY SWOLLEN AND THIGH IS VERY FIRM TO TOUCH. RECOMMEND SURGICAL FOLLOW UP. INFECTIOUS DISEASE MD ON CASE. CULTURE TAKEN FROM OPEN LESION ON RT SIDE OF SCROTUM. DISCUSSED WOUND CARE AND RT LEG/THIGH/SCROTUM WITH NURSING STAFF AND VALUE STREAM MANAGER. WOUND CARE ORDERS UPDATED. MD IN AGREEMENT WITH PLAN OF CARE.
--- NOTE | 2021-04-24 08:15 | NUR ---
RN NOTE SCROTAL LESION CULTURE TAKEN
[2021-04-24] MEDS: PANTOPRAZOLE 40 MG TABLET.DR PO SCH (08:55)
[2021-04-24] MEDS: SEVELAMER CARBONATE 800 MG POWD.PACK GT SCH ×5 (08:55→18:47)
[2021-04-24] MEDS: GABAPENTIN 100 MG CAPSULE PO SCH ×3 (08:55→18:53)
[2021-04-24] MEDS: HYDROCODONE/APAP 5/325MG TABLET PO PRN (08:55)
[2021-04-24] MEDS: ASPIRIN 81 MG TAB.CHEW PO SCH (08:55)
[2021-04-24] MEDS: cetrizine 10 MG TABLET PO SCH (08:56)
[2021-04-24] MEDS: Z GUARD REMEDY 2 OZ OINT TP SCH (08:57)
[2021-04-24] MEDS: NEPRO VAN 237 ML CAN PO SCH ×4 (08:57→21:00)
[2021-04-24] MEDS: FLUTICASONE PROPIONATE 16 GM BOTTLE NS SCH (09:03)
[2021-04-24] MEDS: FLUDROCORTISONE 0.1 MG TABLET PO SCH ×3 (09:03→18:47)
[2021-04-24] MEDS: TIMOLOL MAL/DORZOLAM HCL OPHTH 10 ML BOTTLE EACHEYE SCH ×2 (09:44→18:54)
[2021-04-24] MEDS: INSULIN ASPART/LISPRO 100 UNIT/ML CARTRIDGE SQ SCH ×3 (09:47→18:52)
[2021-04-24] MEDS: INSULIN GLARGINE, 100 UNIT/ML CARTRIDGE SQ SCH ×2 (09:48→18:53)
[2021-04-24] MEDS: INSULIN REGULAR, HUMAN 100 UNIT/ML 3 ML VIAL SQ PRN (13:53)
[2021-04-24] MEDS: MEROPENEM 500 MG in IV NS 0.9% 50 ML IV SCH (13:55)
--- NOTE | 2021-04-24 14:00 | NUR ---
RN NOTE PT UNABLE TO EAT LUNCH OR TAKE SEVELAMER PO D/T LETHARGY
--- NOTE | 2021-04-24 18:30 | NUR ---
RN NOTE PT UNABLE TO TAKE PO MEDS D/T LETHARGY/CONFUSION- ASPIRATION RISK
--- NOTE | 2021-04-24 19:30 | NUR ---
PINION POLISHER CLOSING NOTE PT MORE SLEEPY AND LETHARGIC NOW, RESPONSIVE TO TOUCH. PT ATE 25% BREAKFAST AND NOTHING ELSE. PT NOW INFUSING LEVO @ 0.06 MCG/KG/MIN IN JADE PICC. PT ON RA SPO2 96%. ALL PT SAFETY PRECAUTIONS IN PLACE, MARIAH ENDORSED TO COMMUNICATIONS ASSOCIATE RN
[2021-04-24] MEDS: ATORVASTATIN 40 MG TABLET PO SCH (22:00)
[2021-04-25] VITALS (92 sets, daily range): BP systolic 69–151; BP diastolic 34–114
[2021-04-25] MEDS: MEROPENEM 500 MG in IV NS 0.9% 50 ML IV SCH ×2 (01:00→12:41)
[2021-04-25 04:51] LABS: CALCIUM, SERUM 8.6 mg/dL (8.5-10.1); CREATININE 5.2 mg/dL (0.6-1.3); MAGNESIUM 2.6 mg/dL (1.8-2.4); PHOSPHORUS 3.6 mg/dL (2.5-4.9); POTASSIUM 4.2 mmol/L (3.5-5.1)
[2021-04-25 04:52] LABS: BASOPHILS # (AUTO) 0.1 K/uL (0.0-0.2); BASOPHILS % (AUTO) 0.4 % (0.0-2.0); EOSINOPHILS % (AUTO) 0.6 % (0.0-6.0); HEMATOCRIT 26 % (39-51); HEMOGLOBIN 8.5 g/dL (13.5-17.5); LYMPHOCYTES # (AUTO) 1.4 K/uL (0.8-4.8); LYMPHOCYTES % (AUTO) 4.1 % (20.0-44.0); MEAN CORPUSCULAR HGB CONC 33 g/dl (31.0-36.0); MEAN CORPUSCULAR VOLUME 93 fL (80-96); MONOCYTES # (AUTO) 1.3 K/uL (0.1-1.30); MONOCYTES % (AUTO) 3.9 % (2.0-12.0); NEUTROPHILS # (AUTO) 30.4 K/uL (1.8-8.9); PLATELET COUNT (AUTO) 241 K/uL (150-450)
[2021-04-25 04:55] LABS: WHITE BLOOD COUNT (AUTO) 33.4 K/uL (4.3-11.0)
[2021-04-25 06:07] LABS: BAND % (MANUAL) 9 % (0.0-5.0); EOSINOPHILS % (MANUAL) 1 % (0-4); LYMPHOCYTES % (MANUAL) 8 % (16-48); MONOCYTES % (MANUAL) 5 % (0-11.0); NEUTROPHILS % (MANUAL) 77 (42-76)
--- NOTE | 2021-04-25 07:30 | NUR ---
JD EDWARDS CONSULTANT NOTES RECEIVED PATIENT IN BED, ALERT ORIENTED X 1-2. ABLE TO VERBALIZE BASIC NEEDS. PATIENT ON R/A WITH O2 SAT 96%, AFEBRILE AT THIS TIME AND NO COMPLAINTS OF PAIN. PICC LINE ON LUE DRY AND INTACT, FLUSHING WELL WITH GOOD BLOOD RETURN NOTED. PERIPHERAL IV ON RIGHT WRIST 20G INTACT AND FLUSHING WELL. RCW PERMACATH DRY AND INTACT, LEFT WRIST AV SHUNT INTACT AND MINIMAL THRILL AND BRUIT (IMMATURE SITE PER REPORT). PULSES PALPABLE ON BUE AND BLE, SKIN WARM AND DRY. PATIENT WITH WOUNDS, BLISTER AND SWELLING WITH TENDERNESS ON RLE. WOUND CARE NURSE AND MD AWARE. LEVOPHED INFUSING ORDERED. CALL LIGHT KEPT WITHIN EASY REACH. BED IN LOWEST POSSIBLE POSITION. KEPT PT CLEAN AND COMFORTABLE IN BED. WILL CONTINUE TO MONITOR.
[2021-04-25] MEDS: BLOOD SUGAR DIAGNOSTIC 1 EACH STRIP VI SCH ×4 (08:09→22:04)
[2021-04-25] MEDS: SEVELAMER CARBONATE 800 MG POWD.PACK GT SCH ×3 (08:17→17:48)
[2021-04-25] MEDS: cetrizine 10 MG TABLET PO SCH (08:17)
[2021-04-25] MEDS: PANTOPRAZOLE 40 MG TABLET.DR PO SCH (08:17)
[2021-04-25] MEDS: FLUDROCORTISONE 0.1 MG TABLET PO SCH (08:18)
[2021-04-25] MEDS: GABAPENTIN 100 MG CAPSULE PO SCH ×2 (08:18→17:48)
[2021-04-25] MEDS: NEPRO VAN 237 ML CAN PO SCH ×4 (08:19→21:00)
[2021-04-25] MEDS: Z GUARD REMEDY 2 OZ OINT TP SCH (08:20)
[2021-04-25] MEDS: TIMOLOL MAL/DORZOLAM HCL OPHTH 10 ML BOTTLE EACHEYE SCH ×2 (08:24→17:46)
[2021-04-25] MEDS: INSULIN ASPART/LISPRO 100 UNIT/ML CARTRIDGE SQ SCH ×3 (08:24→17:44)
[2021-04-25] MEDS: FLUTICASONE PROPIONATE 16 GM BOTTLE NS SCH (08:24)
[2021-04-25] MEDS: ASPIRIN 81 MG TAB.CHEW PO SCH (08:24)
[2021-04-25] MEDS: INSULIN GLARGINE, 100 UNIT/ML CARTRIDGE SQ SCH ×2 (08:26→17:44)
--- NOTE | 2021-04-25 09:30 | NUR ---
RN NOTES DUE MDS GIVEN. AM CARE DONE
[2021-04-25] MEDS: IV NS 0.9% 250 ML IV PRN (10:35)
[2021-04-25] MEDS: NOREPINEPHRINE 8 MG in IV NS 0.9% 242 ML IV PRN (10:38)
[2021-04-25] MEDS: LINEZOLID RTU BAG 600 MG in PREMIX 1 EA IV SCH ×2 (11:18→21:00)
[2021-04-25] MEDS: INSULIN REGULAR, HUMAN 100 UNIT/ML 3 ML VIAL SQ PRN ×2 (12:39→21:55)
--- NOTE | 2021-04-25 14:30 | NUR ---
ASHLEY NOTES PATIENT TRANSFERRED TO [facility]. REPORT GIVEN TO THANH RAMIREZ FOR MARIAH. ALL BELONGINGS BROUGHT WITH THE PATIENT. Addendum: 04/25/21 at 1447 by JENNIFER DORMAN RN CORRECTION: DISREGARD THIS DOCUMENTATION INTENDED FOR ANOTHER PATIENT
[2021-04-25] MEDS: *INSULIN REGULAR(HUMULIN R)HUM 100 UNIT/ML VIAL SQ PRN (17:44)
--- NOTE | 2021-04-25 19:00 | NUR ---
GREENHOUSE TRANSPLANTER Closing Notes PATIENT SLEEPING BUT EASILY AROUSABLE TO VOICE AND TOUCH. PATIENT CONSUMED 25% OF BREAKFAST AND 350 ML OF NEPRO SUPPLEMENT. PATIENT STILL ON LEVO @0.06 MCG/KG/MIN INFUSING IN LUE MIDLINE. NO SOB, SPO2@ 98% ON R/A. CALL LIGHT WITHIN EASY REACH. ENDORSED TO INCOMING RN.
--- NOTE | 2021-04-25 20:00 | NUR ---
SLIP COVER MAKER NOTES Patient awake alert oriented x1 follows simple commands in no acute distress. Saturation on RA 98%.SR with BBB per tele monitoring.On Levophed gtt for BP support and will titrate accordingly.Denies pain.Anuric on HD.Left wrist AVS positive bruit and thrill.Right upper chest perma cath intact.Turned and repositioned. Safety measures implemented.
[2021-04-25] MEDS: ATORVASTATIN 40 MG TABLET PO SCH (21:53)
--- NOTE | 2021-04-25 22:00 | NUR ---
FRUIT RAISER NOTES. Patient blood sugar monitored and coverage given per sliding scale.Good po intake.
[2021-04-26] VITALS (77 sets, daily range): BP systolic 81–155; BP diastolic 35–76
--- NOTE | 2021-04-26 | NUR ---
PHYSIOTHERAPY AIDE NOTES. Patient incontinent of stool.Kept clean and dry.Bed bath rendered and complete linens changed. Turned and repositioned.
[2021-04-26] MEDS: MEROPENEM 500 MG in IV NS 0.9% 50 ML IV SCH ×2 (01:01→12:30)
[2021-04-26 04:36] LABS: BASOPHILS # (AUTO) 0.1 K/uL (0.0-0.2); BASOPHILS % (AUTO) 0.4 % (0.0-2.0); EOSINOPHILS % (AUTO) 0.5 % (0.0-6.0); HEMATOCRIT 22 % (39-51); HEMOGLOBIN 7.2 g/dL (13.5-17.5); LYMPHOCYTES % (AUTO) 3.4 % (20.0-44.0); MEAN CORPUSCULAR HGB CONC 33 g/dl (31.0-36.0); MEAN CORPUSCULAR VOLUME 94 fL (80-96); MONOCYTES # (AUTO) 1.2 K/uL (0.1-1.30); MONOCYTES % (AUTO) 4.1 % (2.0-12.0); NEUTROPHILS # (AUTO) 25.7 K/uL (1.8-8.9); NEUTROPHILS % (AUTO) 91.6 % (43.0-81.0); PLATELET COUNT (AUTO) 229 K/uL (150-450); RED BLOOD CELL COUNT(AUTO) 2.35 MIL/uL (4.5-6.0); WHITE BLOOD COUNT (AUTO) 28.1 K/uL (4.3-11.0)
[2021-04-26 04:57] LABS: BILIRUBIN,TOTAL 0.8 mg/dL (0.2-1.0); CALCIUM, SERUM 8.2 mg/dL (8.5-10.1); CREATININE 6.2 mg/dL (0.6-1.3); POTASSIUM 4.6 mmol/L (3.5-5.1); TOTAL PROTEIN, SERUM 5.7 g/dL (6.4-8.2)
[2021-04-26 05:40] LABS: C-REACTIVE PROTEIN 19.2 mg/dL (0.0-0.9)
--- NOTE | 2021-04-26 06:20 | NUR ---
MEDICAL DATA ANALYST NOTES Patient resting in no acute distress.Continued on Levophed gtt at 0.03 mcg ,SR 70'S-80's per monitor. Tolerating RA saturation wnl.Patient AM labs resulted Albumin =1.0 and BUN =111.Called to he said to wait for Industrial Locomotive Operator.All due medications given.Wound care done.Turned and repositioned q2 hrs.No BM noted.Still for MRI R THIGH and BC of HD CATH.Will endorse to day shift for further care and management.
--- NOTE | 2021-04-26 07:30 | NUR ---
POWER TONG OPERATOR OPENING NOTE PT A/Ox2 WITH PERIODS OF CONFUSION, IN BED SEMIFOWLER BREATHING RA, NO S/S OF RESP DISTRESS, SPO2 4%. PT RUCW HD CATH NOTED, INTACT, BERNARDA PICC LINE AND RT WRIST #20 BOTH INTACT AND FLUSHING WELL, NO S/S OF INFILTRATION/INFECTION. PT CURRENTLY ON LEVO @ 0.03 MCG/KG/MIN. PT RT LEG CELLULITIS/BLISTERS NOTED, SCROTAL LESION NOTED WELL, ASSESSED WITH AVA WOUND RN, AND PLAN DISCUSSED, WILL INFORM DR FRANCES OF SKIN ISSUES. ALL PT SAFETY PRECAUTIONS IN PLACE, WILL CONT TO MONITOR
[2021-04-26] MEDS: BLOOD SUGAR DIAGNOSTIC 1 EACH STRIP VI SCH ×4 (08:00→21:17)
--- NOTE | 2021-04-26 08:16 | NUR ---
WOUND CARE FOLLOW UP: PT SEEN FOR SKIN RE-EVALUATION. PT CONTINUES TO PRESENT WITH SIGNIFICANT SWELLING OF RT LOWER EXTREMITY FROM FOOT TO THIGH/HIP AREA WITH PURPLISH DISCOLORATION AND OPEN BLISTER/LESIONS TO LOWER LEG, KNEE AREA, THIGH AND RT SIDE OF SCROTUM. SOME SEROSANGUINOUS DRAINAGE NOTED. SKIN IS HARDENED ON RT THIGH. RECOMMEND SURGICAL FOLLOW UP. RECOMMEND CONTINUE WOUND TREATMENT WITH XEROFORM DSGS, COVER WITH ABD PADS AND SECURE WITH BURN NETTING ON EXTREMITY. SOME DRY PLAQUES/LESIONS NOTED TO ARMS, PRESENT ON ADMISSION. Addendum: 04/26/21 at 0826 by AVA ANDERSON WNDNU FOLLOWED UP WITH KATALINA IN MICROBIOLOGY FOR SCROTAL CULTURE TAKEN 04/24. VLADIMIR WORKING ON SPECIMEN (PRELIMINARY REPORT ONLY).
[2021-04-26] MEDS: INSULIN GLARGINE, 100 UNIT/ML CARTRIDGE SQ SCH ×2 (09:13→18:05)
[2021-04-26] MEDS: INSULIN ASPART/LISPRO 100 UNIT/ML CARTRIDGE SQ SCH ×3 (09:14→18:03)
[2021-04-26] MEDS: *INSULIN REGULAR(HUMULIN R)HUM 100 UNIT/ML VIAL SQ PRN ×4 (09:14→21:26)
[2021-04-26] MEDS: LINEZOLID RTU BAG 600 MG in PREMIX 1 EA IV SCH ×2 (09:15→20:09)
[2021-04-26] MEDS: SEVELAMER CARBONATE 800 MG POWD.PACK GT SCH ×3 (09:16→18:00)
[2021-04-26] MEDS: ASPIRIN 81 MG TAB.CHEW PO SCH (09:16)
[2021-04-26] MEDS: TIMOLOL MAL/DORZOLAM HCL OPHTH 10 ML BOTTLE EACHEYE SCH ×2 (09:16→18:01)
[2021-04-26] MEDS: PANTOPRAZOLE 40 MG TABLET.DR PO SCH (09:16)
[2021-04-26] MEDS: GABAPENTIN 100 MG CAPSULE PO SCH ×3 (09:16→18:00)
[2021-04-26] MEDS: FLUTICASONE PROPIONATE 16 GM BOTTLE NS SCH (09:16)
[2021-04-26] MEDS: cetrizine 10 MG TABLET PO SCH (09:20)
[2021-04-26] MEDS: NEPRO VAN 237 ML CAN PO SCH ×5 (09:20→20:09)
[2021-04-26] MEDS: Z GUARD REMEDY 2 OZ OINT TP SCH (09:20)
--- NOTE | 2021-04-26 10:10 | NUR ---
RN NOTE DR FRANCES AWARE OF PT ALBUMIN 1.0, PROCAL 37.78 (TRENDING DOWN), AND BUN 111
--- NOTE | 2021-04-26 10:30 | NUR ---
RN NOTE SPOKE WITH DR FRANCES REGARDING PT'S RT LEG/THIGH BLISTERS/CELLULITIS AND SCROTAL LESIONS. AWARE OF SCROTAL LESION CULTURE TAKEN ON 04/24, FINAL RESULTS PENDING
[2021-04-26] MEDS: MEGESTROL ACETATE SUSP 400 MG/10 ML UDC PO SCH ×3 (12:25→18:00)
[2021-04-26] MEDS: FLUCONAZOLE (100 MG) 100 MG TABLET PO SCH (15:56)
--- NOTE | 2021-04-26 18:10 | NUR ---
RN NOTE PT UNABLE TO TAKE 1700 PO MEDS PT IS TOO TIRED FROM HD AND IS AN ASPIRATION RISK
--- NOTE | 2021-04-26 18:19 | NUR ---
RN NOTE PT TRANSFUSED 1 UNIT PRBC DURING HD, NO ADVERSE EVENTS, PT TOLERATED TRANSFUSION WELL, HD STILL ONGOING, WILL CONT TO MONITOR
[2021-04-26] MEDS: NOREPINEPHRINE 8 MG in IV NS 0.9% 242 ML IV PRN (18:36)
--- NOTE | 2021-04-26 19:10 | NUR ---
RECEIVED PT ON BED AWAKE AA/O X2-3 ON ROOM AIR SPO2 97%, PT IS HAVING HD AT THIS TIME, HD NURSE AT BEDSIDE, BEDSIDE MONITOR READS SINUS RHYTHM 70-80'S, PT HAVE BERNARDA ML PATENT AND FLUSHED WITH ONGOING LEVOPHED @ 0.04 MCG/KG/MIN V/S STABLE WILL TITRATE PER PROTOCOL, BED ON LOWEST POSITION AND LOCKED SIDE RAILS UP X2 CALL LIGHT WITHIN REACH WILL CONT TO MONITOR
--- NOTE | 2021-04-26 19:15 | NUR ---
RUSSIAN HISTORY PROFESSOR CLOSING NOTE PT FINISHED HD TREATMENT, TOLERATED WELL, CURRENTLY SLEEPY. 2.0L REMOVED, PT ON LEVO 0.04 MCG/KG/MIN. ALL PT SAFETY PRECAUTIONS IN PLACE, MARIAH ENDORSED TO [employer] WEBSPHERE PORTAL DEVELOPER RN
[2021-04-27] VITALS (39 sets, daily range): BP systolic 90–161; BP diastolic 39–133
[2021-04-27] MEDS: MEROPENEM 500 MG in IV NS 0.9% 50 ML IV SCH ×2 (01:03→12:58)
[2021-04-27 04:31] LABS: BASOPHILS # (AUTO) 0.3 K/uL (0.0-0.2); BASOPHILS % (AUTO) 0.9 % (0.0-2.0); EOSINOPHILS % (AUTO) 0.7 % (0.0-6.0); HEMATOCRIT 25 % (39-51); LYMPHOCYTES # (AUTO) 1.3 K/uL (0.8-4.8); LYMPHOCYTES % (AUTO) 4.4 % (20.0-44.0); MEAN CORPUSCULAR HGB CONC 33 g/dl (31.0-36.0); MEAN CORPUSCULAR VOLUME 92 fL (80-96); MONOCYTES # (AUTO) 1.4 K/uL (0.1-1.30); MONOCYTES % (AUTO) 4.8 % (2.0-12.0); NEUTROPHILS % (AUTO) 89.2 % (43.0-81.0); PLATELET COUNT (AUTO) 190 K/uL (150-450); RED BLOOD CELL COUNT(AUTO) 2.69 MIL/uL (4.5-6.0); WHITE BLOOD COUNT (AUTO) 29.2 K/uL (4.3-11.0)
[2021-04-27 04:51] LABS: BILIRUBIN,TOTAL 0.7 mg/dL (0.2-1.0); CALCIUM, SERUM 8.1 mg/dL (8.5-10.1); CREATININE 4.3 mg/dL (0.6-1.3); POTASSIUM 4.4 mmol/L (3.5-5.1)
[2021-04-27 05:02] LABS: ALBUMIN 1.1 g/dL (3.4-5.0)
--- NOTE | 2021-04-27 06:50 | NUR ---
RN NOTE PATIENT RESTING IN BED, EASILY AROUSED. ON ROOM AIR, NO SIGNS OF ACUTE RESPIRATORY DISTRESS. PATIENT OFF LEVO SINCE 2129. BLOOD PRESSURE STABLE. TOLERATED BED BATH, TURNED AND REPOSITIONED. BED LOCKED AND IN LOWEST POSITION. CALL LIGHT WITHIN REACH. WILL ENDORSE TO AM SHIFT.
[2021-04-27] MEDS: SEVELAMER CARBONATE 800 MG POWD.PACK GT SCH ×3 (07:30→18:35)
[2021-04-27] MEDS: PANTOPRAZOLE 40 MG TABLET.DR PO SCH (07:30)
[2021-04-27] MEDS: BLOOD SUGAR DIAGNOSTIC 1 EACH STRIP VI SCH ×4 (07:30→21:59)
[2021-04-27] MEDS: INSULIN ASPART/LISPRO 100 UNIT/ML CARTRIDGE SQ SCH ×3 (07:31→17:42)
--- NOTE | 2021-04-27 07:57 | NUR ---
RECEIVED PT ON BED AWAKE AA/O X2-3 ON ROOM AIR SPO2 96%, BEDSIDE MONITOR READS SINUS RHYTHM 70-80'S, PT HAVE BERNARDA ML PATENT AND FLUSHED BED ON LOWEST POSITION AND LOCKED SIDE RAILS UP X2 CALL LIGHT WITHIN REACH WILL CONT TO MONITOR
[2021-04-27] MEDS: MEGESTROL ACETATE SUSP 400 MG/10 ML UDC PO SCH ×2 (08:11→16:49)
[2021-04-27] MEDS: cetrizine 10 MG TABLET PO SCH (08:12)
[2021-04-27] MEDS: ASPIRIN 81 MG TAB.CHEW PO SCH (08:12)
[2021-04-27] MEDS: FLUCONAZOLE (100 MG) 100 MG TABLET PO SCH (08:12)
[2021-04-27] MEDS: GABAPENTIN 100 MG CAPSULE PO SCH ×2 (08:12→16:50)
[2021-04-27] MEDS: LINEZOLID RTU BAG 600 MG in PREMIX 1 EA IV SCH ×2 (08:14→21:33)
[2021-04-27] MEDS: FLUTICASONE PROPIONATE 16 GM BOTTLE NS SCH (08:16)
[2021-04-27] MEDS: NEPRO VAN 237 ML CAN PO SCH ×4 (08:16→21:00)
[2021-04-27] MEDS: TIMOLOL MAL/DORZOLAM HCL OPHTH 10 ML BOTTLE EACHEYE SCH ×2 (08:16→16:49)
[2021-04-27] MEDS: Z GUARD REMEDY 2 OZ OINT TP SCH (08:17)
[2021-04-27] MEDS: INSULIN GLARGINE, 100 UNIT/ML CARTRIDGE SQ SCH ×2 (08:19→17:21)
[2021-04-27] MEDS: HYDROMORPHONE 1 MG/1 ML DISP.SYRIN IV PRN (08:28)
[2021-04-27] MEDS: INSULIN REGULAR, HUMAN 100 UNIT/ML 3 ML VIAL SQ PRN ×3 (09:08→17:23)
[2021-04-27] MEDS: HEPARIN SODIUM, PORCINE 5000 UNITS/1 ML VIAL IV SCH ×2 (12:59→21:34)
--- NOTE | 2021-04-27 13:00 | NUR ---
CONFIRM TO DR FRANCES ABOUT THE HEPARIN ORDER THAT THE PT H&H IS 8 HBG AND 25 HCT AND POSITIVE OCCULT BLOOD HE SAID TO GIVE IT AND JUST MONITOR FOR BLEEDING BECAUSE PT IS HIGH RISK FOR DVT
[2021-04-27] MEDS ORDERED: HYDROMORPHONE 1 MG/1 ML DISP.SYRIN IV PRN (15:00)
--- NOTE | 2021-04-27 15:20 | NUR ---
INVESTIGATIVE ASSISTANTSAFETY LEADER NOTES RECEIVED PATIENT FROM ICU. ALERT AND ORIENTED X3. NO SOB. NO SIGNS OR SYMPTOMS OF DISTRESS NOTED. BREATHING IS EVEN AND UNLABORED. RECEIVED REPORT FROM GRETCHEN MIX TECHNICIAN. ORIENTED PATIENT TO STAFF, UNIT AND CALL LIGHT. SAFETY MEASURES MAINTAINED WITH BED LOCKED AT LOW POSITION, SIDE RAILS UP X2. WILL CONTINUE TO MONITOR PATIENT THROUGHOUT SHIFT.
--- NOTE | 2021-04-27 19:31 | NUR ---
GREEN END DEPARTMENT SUPERVISOR CLOSING NOTES PATIENT IS IN BED, RESTING. NO SOB. NO SIGNS OR SYMPTOMS OF DISTRESS NOTED. BREATHING IS EVEN AND UNLABORED. SAFETY MEASURES MAINTAINED WITH BED LOCKED AT LOW POSITION, SIDE RAILS UP X2. ALL NEEDS MET THROUGHOUT SHIFT. WILL ENDORSE CONTINUITY OF CARE TO ONCOMING SHIFT.
[2021-04-27] MEDS: *INSULIN REGULAR(HUMULIN R)HUM 100 UNIT/ML VIAL SQ PRN (22:45)
[2021-04-28] VITALS (9 sets, daily range): BP systolic 97–122; BP diastolic 52–67
[2021-04-28] MEDS: MEROPENEM 500 MG in IV NS 0.9% 50 ML IV SCH ×2 (01:15→13:33)
[2021-04-28] MEDS: BLOOD SUGAR DIAGNOSTIC 1 EACH STRIP VI SCH ×4 (06:39→22:25)
[2021-04-28] MEDS: INSULIN ASPART/LISPRO 100 UNIT/ML CARTRIDGE SQ SCH ×3 (06:40→17:35)
--- NOTE | 2021-04-28 06:51 | NUR ---
SALES ENGINEER NOTES PT SLEEPING. AROUSABLE TO TACTILE AND PAINFUL STIMULI. NOT IN ANY DISTRESS. NO SOB NOTED. NO S/SX OF ANY PAIN OR DISCOMFORT AT THIS TIME. ON TELE SR @ 88 WITH IV-HL PATENT & INTACT. AM CARE DONE. MONITORED ACCORDINGLY. CALL LIGHT WITHIN REACH. BED IN LOWEST POSITION. SR UP X 3 WITH BED ALARM ON FOR SAFETY. WILL ENDORSE TO NEXT SHIFT.
[2021-04-28 07:13] LABS: BASOPHILS # (AUTO) 0.1 K/uL (0.0-0.2); BASOPHILS % (AUTO) 0.5 % (0.0-2.0); EOSINOPHILS % (AUTO) 0.8 % (0.0-6.0); HEMATOCRIT 22 % (39-51); HEMOGLOBIN 7.1 g/dL (13.5-17.5); LYMPHOCYTES % (AUTO) 4.5 % (20.0-44.0); MEAN CORPUSCULAR HGB CONC 32 g/dl (31.0-36.0); MEAN CORPUSCULAR VOLUME 92 fL (80-96); MONOCYTES % (AUTO) 4.6 % (2.0-12.0); NEUTROPHILS # (AUTO) 19.5 K/uL (1.8-8.9); NEUTROPHILS % (AUTO) 89.6 % (43.0-81.0); PLATELET COUNT (AUTO) 280 K/uL (150-450); RED BLOOD CELL COUNT(AUTO) 2.41 MIL/uL (4.5-6.0); WHITE BLOOD COUNT (AUTO) 21.8 K/uL (4.3-11.0)
[2021-04-28 07:33] LABS: BILIRUBIN,TOTAL 0.8 mg/dL (0.2-1.0); CALCIUM, SERUM 7.7 mg/dL (8.5-10.1); CREATININE 5.9 mg/dL (0.6-1.3); POTASSIUM 4.8 mmol/L (3.5-5.1); TOTAL PROTEIN, SERUM 5.9 g/dL (6.4-8.2)
--- NOTE | 2021-04-28 07:39 | NUR ---
BILL ADJUSTER OPENING NOTES RECEIVED PATIENT IN BED, AWAKE, A/O X2. PATIENT ON ROOM AIR; BREATHING EVEN AND UNLABORED AT THIS TIME. TELE MONITOR WITH A CURRENT READING OF SR 89. COMPLAINING OF MILD PAIN IN THE LEG. BERNARDA MIDLINE IN PLACE, RCW HD CATH PRESENT. SAFETY PRECAUTIONS IN PLACE; BED IN LOW POSITION AND LOCKED, RAILS UP X2, CALL LIGHT WITHIN REACH. WILL CONTINUE TO MONITOR PATIENT.
[2021-04-28] MEDS: TIMOLOL MAL/DORZOLAM HCL OPHTH 10 ML BOTTLE EACHEYE SCH ×2 (08:45→16:25)
[2021-04-28] MEDS: FLUTICASONE PROPIONATE 16 GM BOTTLE NS SCH (08:45)
[2021-04-28] MEDS: MEGESTROL ACETATE SUSP 400 MG/10 ML UDC PO SCH ×2 (08:46→16:19)
[2021-04-28] MEDS: ASPIRIN 81 MG TAB.CHEW PO SCH (08:46)
[2021-04-28] MEDS: NEPRO VAN 237 ML CAN PO SCH ×4 (08:47→21:49)
[2021-04-28] MEDS: cetrizine 10 MG TABLET PO SCH (08:47)
[2021-04-28] MEDS: FLUCONAZOLE (100 MG) 100 MG TABLET PO SCH (08:47)
[2021-04-28] MEDS: PANTOPRAZOLE 40 MG TABLET.DR PO SCH (08:47)
[2021-04-28] MEDS: GABAPENTIN 100 MG CAPSULE PO SCH ×2 (08:47→16:19)
[2021-04-28] MEDS: Z GUARD REMEDY 2 OZ OINT TP SCH (08:48)
[2021-04-28] MEDS: LINEZOLID RTU BAG 600 MG in PREMIX 1 EA IV SCH (08:48)
[2021-04-28 08:53] LABS: C-REACTIVE PROTEIN 16.8 mg/dL (0.0-0.9)
[2021-04-28] MEDS: HYDROCODONE/APAP 5/325MG TABLET PO PRN (08:58)
[2021-04-28] MEDS: INSULIN GLARGINE, 100 UNIT/ML CARTRIDGE SQ SCH ×2 (09:00→16:29)
[2021-04-28] MEDS: HEPARIN SODIUM, PORCINE 5000 UNITS/1 ML VIAL IV SCH (09:00)
[2021-04-28 09:06] LABS: ALBUMIN 1.1 g/dL (3.4-5.0)
--- NOTE | 2021-04-28 09:12 | NUR ---
HEAD CHAR FILTER TANK TENDER NOTE LAB CALLED WITH A CRITICAL RESULT FOR BUN OF 90 AND ALBUMIN OF 1.1 MD ON THE FLOOR, MADE AWARE. ORDERS RECEIVED.
--- NOTE | 2021-04-28 10:05 | NUR ---
BUILDING SERVICES TECHNICIAN NOTES PATIENT WITH HGB OF 7.1 TODAY. MD AWARE AND STILL OK WITH ADMINISTERING HEPARIN SQ.
[2021-04-28] MEDS: SEVELAMER CARBONATE 800 MG POWD.PACK GT SCH ×3 (10:07→17:46)
[2021-04-28] MEDS: HEPARIN SODIUM, PORCINE 5000 UNITS/1 ML VIAL SQ SCH ×2 (11:39→22:25)
[2021-04-28] MEDS: *INSULIN REGULAR(HUMULIN R)HUM 100 UNIT/ML VIAL SQ PRN ×2 (12:21→22:33)
[2021-04-28] MEDS: METOPROLOL TARTRATE 25 MG TABLET PO SCH ×2 (14:30→21:55)
--- NOTE | 2021-04-28 15:14 | NUR ---
CRYSTAL FLAT GRINDER NOTES 1430 METOPROLOL NON-ADMINISTERED. PATIENT AWAITING DIALYSIS TODAY AND TENDS TO BE HYPOTENSIVE.
[2021-04-28] MEDS ORDERED: VANCOMYCIN POST DIALYSIS 500MG IV PRN (15:30)
[2021-04-28] MEDS: GENTAMICIN 0.1% OINT 15 GM TUBE TP SCH (17:13)
[2021-04-28] MEDS: INSULIN REGULAR, HUMAN 100 UNIT/ML 3 ML VIAL SQ PRN (17:27)
[2021-04-28] MEDS ORDERED: VANCOMYCIN 1 GM in IV D5W 250ml IV ONE ×2 (18:00→20:00)
--- NOTE | 2021-04-28 18:00 | NUR ---
TUBE BUFFER NOTES PATIENT STARTED HD AND BLOOD TRANSFUSION OF 1 PRBC WITH HD. VS WNL AT THIS TIME.
--- NOTE | 2021-04-28 18:43 | NUR ---
CORRECTIONAL CASE MANAGER CLOSING NOTES PATIENT REMAINS IN BED, AWAKE, A/O X2. PATIENT ON ROOM AIR; BREATHING EVEN AND UNLABORED AT THIS TIME. TELE MONITOR WITH A CURRENT READING OF SR 89. NO COMPLAINS OF PAIN AT THIS TIME. BERNARDA MIDLINE IN PLACE, RCW HD CATH PRESENT. ALL NEEDS ATTENDED DURING THE DAY. SAFETY PRECAUTIONS IN PLACE; BED IN LOW POSITION AND LOCKED, RAILS UP X2, CALL LIGHT WITHIN REACH. WILL ENDORSE TO COMMANDING OFFICER GARAGE NURSE.
--- NOTE | 2021-04-28 19:15 | NUR ---
LOSS PREVENTION MANAGER NOTES BLOOD TRANSFUSION FINISHED. NO S/S OF ADVERSE EFFECTS, VITAL SIGNS STABLE. WILL CONTINUE TO MONITOR PATIENT
--- NOTE | 2021-04-28 19:30 | NUR ---
PIPE SUPERVISOR NOTES PATIENT RESTING IN BED, ALERT/ORIENTED X 1-2, CURRENTLY GETTING DIALYSIS AND BLOOD TRANSFUSION, NO ADVERSE EFFECTS NOTED. PATIENT DENIES PAIN AT THIS TIME. PT STABLE ON RA, NO S/S OF DISTRESS OR SOB NOTED, BREATHING EVEN AND UNLABORED. TELEMONITORING SHOWS SINUS RHYTHM, HR 83. BERNARDA MIDLINE INTACT AND FLUSHING WELL. SAFETY PRECAUTIONS IN PLACE, CALL LIGHT WITHIN REACH, BED ALARM ON, SIDE RAILS UP X 3. WILL CONTINUE TO MONITOR PATIENT THROUGHOUT SHIFT
[2021-04-29] VITALS: BP 109/60
[2021-04-29] MEDS: MEROPENEM 500 MG in IV NS 0.9% 50 ML IV SCH ×2 (01:44→13:35)
[2021-04-29 04:00] VITALS: BP 98/53
[2021-04-29 06:33] LABS: BASOPHILS # (AUTO) 0.1 K/uL (0.0-0.2); BASOPHILS % (AUTO) 0.5 % (0.0-2.0); EOSINOPHILS % (AUTO) 0.3 % (0.0-6.0); HEMATOCRIT 24 % (39-51); LYMPHOCYTES # (AUTO) 0.8 K/uL (0.8-4.8); LYMPHOCYTES % (AUTO) 3.9 % (20.0-44.0); MEAN CORPUSCULAR HGB CONC 34 g/dl (31.0-36.0); MEAN CORPUSCULAR VOLUME 91 fL (80-96); MONOCYTES # (AUTO) 0.9 K/uL (0.1-1.30); MONOCYTES % (AUTO) 4.2 % (2.0-12.0); NEUTROPHILS # (AUTO) 18.9 K/uL (1.8-8.9); NEUTROPHILS % (AUTO) 91.1 % (43.0-81.0); PLATELET COUNT (AUTO) 274 K/uL (150-450); RED BLOOD CELL COUNT(AUTO) 2.62 MIL/uL (4.5-6.0); WHITE BLOOD COUNT (AUTO) 20.8 K/uL (4.3-11.0)
[2021-04-29 06:49] LABS: CALCIUM, SERUM 7.9 mg/dL (8.5-10.1); CREATININE 4.4 mg/dL (0.6-1.3); POTASSIUM 4.1 mmol/L (3.5-5.1); TOTAL PROTEIN, SERUM 6.1 g/dL (6.4-8.2)
[2021-04-29 06:55] LABS: ALBUMIN 1.1 g/dL (3.4-5.0)
[2021-04-29] MEDS: INSULIN ASPART/LISPRO 100 UNIT/ML CARTRIDGE SQ SCH ×3 (07:30→18:01)
[2021-04-29] MEDS: BLOOD SUGAR DIAGNOSTIC 1 EACH STRIP VI SCH ×4 (07:32→22:33)
--- NOTE | 2021-04-29 07:45 | NUR ---
ADMINISTRATION CLERK NOTES PATIENT RESTING IN BED, NO S/S OF DISTRESS OR SOB NOTED, BREATHING EVEN AND UNLABORED. MEDICATIONS GIVEN ORDERED, PT NEEDS MET THROUGHOUT SHIFT. NOTICED THAT PATIENT HAD LARGE OPEN WOUND IN SACRUM WHEN CHANGING PATIENT WITH CHILD CARE DIRECTOR, NO PHOTO WAS PRESENT IN CHART AND NO CHARTING DONE ON WOUND. TOOK PHOTO AND ORDERED WOUND CONSULT. SAFETY MEASURES IN PLACE, CALL LIGHT WITHIN REACH, BED ALARM ON, SIDE RAILS UP X 3. WILL ENDORSE TO DAY SHIFT NURSE FOR CONTINUITY OF CARE
[2021-04-29 08:00] VITALS: BP 125/62
[2021-04-29] MEDS: METOPROLOL TARTRATE 25 MG TABLET PO SCH ×2 (09:00→21:00)
[2021-04-29] MEDS: INSULIN GLARGINE, 100 UNIT/ML CARTRIDGE SQ SCH ×2 (09:00→18:02)
[2021-04-29] MEDS: Z GUARD REMEDY 2 OZ OINT TP SCH (09:00)
[2021-04-29] MEDS: MEGESTROL ACETATE SUSP 400 MG/10 ML UDC PO SCH ×2 (10:31→18:17)
[2021-04-29] MEDS: PANTOPRAZOLE 40 MG TABLET.DR PO SCH (10:31)
[2021-04-29] MEDS: FLUCONAZOLE (100 MG) 100 MG TABLET PO SCH (10:31)
[2021-04-29] MEDS: ASPIRIN 81 MG TAB.CHEW PO SCH (10:31)
[2021-04-29] MEDS: cetrizine 10 MG TABLET PO SCH (10:31)
[2021-04-29] MEDS: SEVELAMER CARBONATE 800 MG POWD.PACK GT SCH ×3 (10:32→18:17)
[2021-04-29] MEDS: FLUTICASONE PROPIONATE 16 GM BOTTLE NS SCH (10:35)
[2021-04-29] MEDS: TIMOLOL MAL/DORZOLAM HCL OPHTH 10 ML BOTTLE EACHEYE SCH ×2 (10:36→17:56)
[2021-04-29] MEDS: GENTAMICIN 0.1% OINT 15 GM TUBE TP SCH ×2 (10:36→18:44)
[2021-04-29] MEDS: GABAPENTIN 100 MG CAPSULE PO SCH ×2 (10:41→18:18)
[2021-04-29] MEDS: NEPRO VAN 237 ML CAN PO SCH ×4 (11:18→21:05)
--- NOTE | 2021-04-29 12:00 | NUR ---
DR. FRANCES IN TOLD HIM PT. NOT EATING,CHANGED TO PUREED DIET.
[2021-04-29] MEDS: HEPARIN SODIUM, PORCINE 5000 UNITS/1 ML VIAL SQ SCH ×2 (15:48→21:00)
[2021-04-29 16:16] VITALS: BP 115/50
--- NOTE | 2021-04-29 18:00 | NUR ---
HAD LOOSE STOOL AND SITTING IN STOOLS,ALL WOUNDS DONE.PT. WITH SOME DISCOMFORT.
--- NOTE | 2021-04-29 18:30 | NUR ---
[employer] MATTRESS ORDERED AND ENDORSED TO FORENSIC SERGEANT.
--- NOTE | 2021-04-29 19:30 | NUR ---
CARDIOPULMONARY SUPERVISOR OPENING RECEIVED PATIENT IN BED. GERMAN SPEAKING. NO S/S OF APPARENT DISTRESS. NO C/O PAIN AT THIS TIME. PATIENT WARM TO TOUCH -- TEMPERATURE 99.1 INITIATED COOLING MEASURES FOR NOW. CHEMIST ENZYMES READING SINUS TACHY. NO FLUIDS RUNNING AT THIS TIME. SAFETY IN PLACE. WILL CONT. TO MONITOR.
[2021-04-29 20:00] VITALS: BP 91/41
--- NOTE | 2021-04-29 21:02 | NUR ---
MONOTYPER NOTE HELD SCHEDULED DOSE OF METOPROLOL FOR THIS TIME. BP 91/41. WILL CONT. TO MONITOR PATIENT.
--- NOTE | 2021-04-29 21:07 | NUR ---
MECHANICAL APPRENTICE NOTES HELD SCHEDULED DOSE OF HEPARIN. LAST ADMINISTERED WAS 6 HOURS AGO. DOSE Q12HRS.
--- NOTE | 2021-04-29 22:00 | NUR ---
outbound telemarketer note patient temperature went down to 98 f after cooling measures. will cont. to monitor patient.
[2021-04-29] MEDS: *INSULIN REGULAR(HUMULIN R)HUM 100 UNIT/ML VIAL SQ PRN (22:36)
[2021-04-30] VITALS: BP 112/58
[2021-04-30] MEDS: MEROPENEM 500 MG in IV NS 0.9% 50 ML IV SCH ×2 (01:04→12:07)
--- NOTE | 2021-04-30 03:57 | NUR ---
television engineer notes rechecked patients temperature at this time. patient running low grade fever of 100.2 -- patient has no tylenol in his medication list. asked charge nurseMargoth if we could message doctor to prescribed any tylenol. Per charge don't need yet since patient is getting blood culture at the am today with his HD. Will continue with cooling measures.
[2021-04-30 04:00] VITALS: BP 124/72
[2021-04-30] MEDS: BLOOD SUGAR DIAGNOSTIC 1 EACH STRIP VI SCH ×4 (06:53→22:07)
--- NOTE | 2021-04-30 07:20 | NUR ---
telemetry monitor closing patient a/ox3. no s/s of apparent distress. no c/o pain, temperature managed with cooling measures, no fever at this time. no fluids running at this time. wound treatment done. safety kept in place the whole shift. no significant change since last shift. report given to shan for cont. of care.
[2021-04-30] MEDS: PANTOPRAZOLE 40 MG TABLET.DR PO SCH (07:30)
--- NOTE | 2021-04-30 07:31 | NUR ---
EVENT ORGANIZER OPENING NOTES RECEIVED PATIENT IN BED, AWAKE, PATIENT IS A/O X2. PATIENT IS BREATHING EVENLY AND NONLABORED STABLE ON ROOM AIR; NO SIGNS OF DISTRESS NOTED. TELE MONITOR SHOWING NSR. NO COMPLAINTS OF PAIN AT THIS TIME. BENRARDA MIDLINE IN PLACE, RCW HD CATH PRESENT PATENT AND INTACT. AWAITING FOR HD FOR REDRAW OF CULTURES. SAFETY PRECAUTIONS IN PLACE; BED IN LOW POSITION AND LOCKED, RAILS UP X2, CALL LIGHT WITHIN REACH. WILL CONTINUE TO MONITOR
[2021-04-30] MEDS: SEVELAMER CARBONATE 800 MG POWD.PACK GT SCH ×3 (08:00→17:38)
[2021-04-30] MEDS: HEPARIN SODIUM, PORCINE 5000 UNITS/1 ML VIAL SQ SCH ×3 (08:06→21:37)
[2021-04-30] MEDS: INSULIN ASPART/LISPRO 100 UNIT/ML CARTRIDGE SQ SCH ×3 (08:08→17:40)
[2021-04-30] MEDS: FLUTICASONE PROPIONATE 16 GM BOTTLE NS SCH (08:09)
[2021-04-30] MEDS: TIMOLOL MAL/DORZOLAM HCL OPHTH 10 ML BOTTLE EACHEYE SCH ×2 (08:09→17:37)
[2021-04-30] MEDS: INSULIN GLARGINE, 100 UNIT/ML CARTRIDGE SQ SCH ×2 (08:09→17:40)
[2021-04-30] MEDS: MEGESTROL ACETATE SUSP 400 MG/10 ML UDC PO SCH ×2 (08:10→17:37)
[2021-04-30] MEDS: METOPROLOL TARTRATE 25 MG TABLET PO SCH ×2 (08:10→21:00)
[2021-04-30] MEDS: FLUCONAZOLE (100 MG) 100 MG TABLET PO SCH (08:10)
[2021-04-30] MEDS: NEPRO VAN 237 ML CAN PO SCH ×4 (08:10→21:12)
[2021-04-30] MEDS: cetrizine 10 MG TABLET PO SCH (08:10)
[2021-04-30] MEDS: GENTAMICIN 0.1% OINT 15 GM TUBE TP SCH ×2 (08:11→17:41)
[2021-04-30] MEDS: GABAPENTIN 100 MG CAPSULE PO SCH ×2 (08:11→17:37)
[2021-04-30] MEDS: Z GUARD REMEDY 2 OZ OINT TP SCH (08:12)
[2021-04-30] MEDS: ASPIRIN 81 MG TAB.CHEW PO SCH (08:16)
--- NOTE | 2021-04-30 08:44 | NUR ---
RN NOTE PATIENT REFUSED ORAL MEDICATIONS DUE TO HAVING DIALYSIS AT THIS TIME. EXPLAINED RISK AND BENEFITS. PATIENT REFUSED. WILL CONTINUE TO MONITOR
--- NOTE | 2021-04-30 11:00 | NUR ---
RN NOTE DIALYSIS COMPLETE, REMOVED 2 LPM OF FLUID WILL CONTINUE TO MONITOR
[2021-04-30] MEDS: INSULIN REGULAR, HUMAN 100 UNIT/ML 3 ML VIAL SQ PRN ×2 (11:25→17:39)
[2021-04-30] MEDS: HYDROCODONE/APAP 5/325MG TABLET PO PRN (11:44)
--- NOTE | 2021-04-30 11:44 | NUR ---
RN NOTE PATIENT COMPLAINED OF PAIN / ASKED FOR PAIN MEDICATION, VITALS STABLE. WILL GIVE PRN PAIN MEDICATION
[2021-04-30 12:06] LABS: BASOPHILS # (AUTO) 0.1 K/uL (0.0-0.2); BASOPHILS % (AUTO) 0.3 % (0.0-2.0); EOSINOPHILS % (AUTO) 0.6 % (0.0-6.0); HEMATOCRIT 25 % (39-51); HEMOGLOBIN 8.3 g/dL (13.5-17.5); LYMPHOCYTES # (AUTO) 0.8 K/uL (0.8-4.8); LYMPHOCYTES % (AUTO) 4.4 % (20.0-44.0); MEAN CORPUSCULAR HGB CONC 33 g/dl (31.0-36.0); MEAN CORPUSCULAR VOLUME 91 fL (80-96); MONOCYTES # (AUTO) 0.9 K/uL (0.1-1.30); MONOCYTES % (AUTO) 4.8 % (2.0-12.0); NEUTROPHILS # (AUTO) 16.6 K/uL (1.8-8.9); NEUTROPHILS % (AUTO) 89.9 % (43.0-81.0); PLATELET COUNT (AUTO) 312 K/uL (150-450); RED BLOOD CELL COUNT(AUTO) 2.76 MIL/uL (4.5-6.0); WHITE BLOOD COUNT (AUTO) 18.5 K/uL (4.3-11.0)
[2021-04-30 12:21] LABS: CALCIUM, SERUM 9.1 mg/dL (8.5-10.1); CREATININE 2.2 mg/dL (0.6-1.3); POTASSIUM 3.4 mmol/L (3.5-5.1)
[2021-04-30 12:39] LABS: ALBUMIN 1.3 g/dL (3.4-5.0)
--- NOTE | 2021-04-30 13:11 | NUR ---
RN NOTE CRITICAL LAB VALUES REPORTED BY SABI PEREYRA, ALBUMIN 1.3 AND PROCALCITONIN 14.10. REPORTED TO MD, NO NEW ORDERS AT THIS TIME. WILL CONTINUE TO MONITOR
--- NOTE | 2021-04-30 18:28 | NUR ---
DRY CLEANER PRESSER CLOSING NOTES PATIENT IN BED, AWAKE, PATIENT IS A/O X2. PATIENT IS BREATHING EVENLY AND NONLABORED STABLE ON ROOM AIR; NO SIGNS OF DISTRESS NOTED. TELE MONITOR SHOWING NSR. NO COMPLAINTS OF PAIN AT THIS TIME. BERNARDA MIDLINE IN PLACE, RCW HD CATH PRESENT PATENT AND INTACT. ALL MEDICATIONS GIVEN ORDERED. WOUND TREATMENT DONE ORDERED. SAFETY PRECAUTIONS IN PLACE; BED IN LOW POSITION AND LOCKED, RAILS UP X2, CALL LIGHT WITHIN REACH. WILL ENDORSE TO ONCOMING SHIFT
--- NOTE | 2021-04-30 19:28 | NUR ---
INVENTORY CONTROL SPECIALIST OPENING RECEIVED PATIENT SITTING IN BED A/OX2. NO S/S OF APPARENT DISTRESS TOLERATING ROOM AIR. NO C/O PAIN AT THIS TIME. PATIENT SHAKING AND REPORTING HE IS COLD -- WARM BLANKETS GIVEN. NO FLUIDS RUNNING AT THIS TIME. TELE MONITOR READING ST 114. SAFETY IN PLACE. WILL CONTINUE TO MONITOR.
[2021-04-30 20:38] VITALS: BP_SYST 102; BP_SYST 167; BP_DIAS 61; BP_DIAS 77
[2021-04-30] MEDS: *INSULIN REGULAR(HUMULIN R)HUM 100 UNIT/ML VIAL SQ PRN (22:10)
--- NOTE | 2021-04-30 23:13 | NUR ---
telephone betting clerk note patient in severe pain after dressing change given dilaudid 0.25 mg. will reassess.
[2021-05-01] VITALS (10 sets, daily range): BP systolic 92–117; BP diastolic 42–64
[2021-05-01] MEDS: MEROPENEM 500 MG in IV NS 0.9% 50 ML IV SCH ×2 (01:09→12:07)
--- NOTE | 2021-05-01 05:53 | NUR ---
telecom field technician note patient managed to finish one carton of Nepro drink. blood sugar 77 in the am.
[2021-05-01] MEDS: BLOOD SUGAR DIAGNOSTIC 1 EACH STRIP VI SCH ×4 (06:30→22:31)
[2021-05-01 06:54] LABS: BASOPHILS # (AUTO) 0.1 K/uL (0.0-0.2); BASOPHILS % (AUTO) 0.5 % (0.0-2.0); EOSINOPHILS % (AUTO) 0.4 % (0.0-6.0); HEMATOCRIT 24 % (39-51); HEMOGLOBIN 7.9 g/dL (13.5-17.5); LYMPHOCYTES # (AUTO) 0.9 K/uL (0.8-4.8); LYMPHOCYTES % (AUTO) 4.5 % (20.0-44.0); MEAN CORPUSCULAR HGB CONC 33 g/dl (31.0-36.0); MEAN CORPUSCULAR VOLUME 93 fL (80-96); MONOCYTES # (AUTO) 1.2 K/uL (0.1-1.30); MONOCYTES % (AUTO) 6.1 % (2.0-12.0); NEUTROPHILS # (AUTO) 17.1 K/uL (1.8-8.9); NEUTROPHILS % (AUTO) 88.5 % (43.0-81.0); PLATELET COUNT (AUTO) 297 K/uL (150-450); RED BLOOD CELL COUNT(AUTO) 2.63 MIL/uL (4.5-6.0); WHITE BLOOD COUNT (AUTO) 19.3 K/uL (4.3-11.0)
--- NOTE | 2021-05-01 07:28 | NUR ---
telephone collector notes no significant change since last shift. report given to tran for cont. of care.
[2021-05-01] MEDS: INSULIN ASPART/LISPRO 100 UNIT/ML CARTRIDGE SQ SCH ×3 (07:30→17:30)
[2021-05-01 07:35] LABS: BILIRUBIN,TOTAL 1.1 mg/dL (0.2-1.0); CALCIUM, SERUM 8.6 mg/dL (8.5-10.1); CREATININE 4.4 mg/dL (0.6-1.3); POTASSIUM 4.1 mmol/L (3.5-5.1); TOTAL PROTEIN, SERUM 6.8 g/dL (6.4-8.2)
--- NOTE | 2021-05-01 08:07 | NUR ---
SANITATION LABORER OPENING NOTES RECEIVED PATIENT IN BED, ASLEEP, ON ROOM AIR. BREATHING IS EVEN AND UNLABORED, NO SOB NOTED. TELE MONITOR WITH A CURRENT READING OF ST 110 BPM. NO S/S OF PAIN NOTED. IV ACCESS ON R WRIST G #20 SL, BERNARDA MIDLINE AND R CHEST PERMACATH. SAFETY PRECAUTIONS IN PLACE; BED IN LOW POSITION AND LOCKED, RAILS UP X2, CALL LIGHT WITHIN REACH. WILL CONTINUE TO MONITOR PATIENT.
[2021-05-01 08:09] LABS: ALBUMIN 1.3 g/dL (3.4-5.0)
[2021-05-01 08:27] LABS: C-REACTIVE PROTEIN 32.2 mg/dL (0.0-0.9)
--- NOTE | 2021-05-01 08:39 | NUR ---
WOUND CARE CONSULT: PT SEEN FOR OPEN LESION TO GLUTEAL CREASE EXTENDING TO BILATERAL BUTTOCKS. PT ALSO HAS LESION TO RT SIDE OF SCROTUM AND OPEN LESIONS TO ENTIRE RT LOWER EXTREMITY. DISCUSSED WITH SURGICAL Colten MARKS AND WOUND CARE ORDERS UPDATED. DEFER TO DPM FOR LOWER LEG. RECOMMENDATIONS MADE FOR SKIN PROTECTION. DISCUSSED WITH NURSING STAFF. PT IS ON [facility] LOW AIRLOSS MATTRESS. PT NOTED TO BE INCONTINENT OF STOOL. MD IN AGREEMENT WITH PLAN OF CARE. Addendum: 05/01/21 at 0846 by AVA ANDERSON WNDNU Amended: Links added.
[2021-05-01] MEDS: METOPROLOL TARTRATE 25 MG TABLET PO SCH ×2 (09:00→21:00)
[2021-05-01] MEDS: ASPIRIN 81 MG TAB.CHEW PO SCH (09:27)
[2021-05-01] MEDS: GABAPENTIN 100 MG CAPSULE PO SCH ×2 (09:27→18:17)
[2021-05-01] MEDS: PANTOPRAZOLE 40 MG TABLET.DR PO SCH (09:28)
[2021-05-01] MEDS: MEGESTROL ACETATE SUSP 400 MG/10 ML UDC PO SCH ×2 (09:28→18:17)
[2021-05-01] MEDS: FLUCONAZOLE (100 MG) 100 MG TABLET PO SCH (09:28)
[2021-05-01] MEDS: cetrizine 10 MG TABLET PO SCH (09:28)
[2021-05-01] MEDS: FLUTICASONE PROPIONATE 16 GM BOTTLE NS SCH (09:30)
[2021-05-01] MEDS: TIMOLOL MAL/DORZOLAM HCL OPHTH 10 ML BOTTLE EACHEYE SCH ×2 (09:30→18:17)
[2021-05-01] MEDS: SEVELAMER CARBONATE 800 MG POWD.PACK GT SCH ×3 (09:31→18:17)
[2021-05-01] MEDS: NEPRO VAN 237 ML CAN PO SCH ×4 (09:31→21:39)
[2021-05-01] MEDS: HEPARIN SODIUM, PORCINE 5000 UNITS/1 ML VIAL SQ SCH ×2 (09:36→21:00)
[2021-05-01] MEDS: GENTAMICIN 0.1% OINT 15 GM TUBE TP SCH ×2 (09:45→17:00)
[2021-05-01] MEDS: Z GUARD REMEDY 2 OZ OINT TP SCH (09:45)
[2021-05-01] MEDS: INSULIN GLARGINE, 100 UNIT/ML CARTRIDGE SQ SCH ×2 (10:06→18:31)
--- NOTE | 2021-05-01 10:30 | NUR ---
SS note: SS consult requested for pt with multiple wounds from home. SS will follow up at a later time.
[2021-05-01] MEDS: INSULIN REGULAR, HUMAN 100 UNIT/ML 3 ML VIAL SQ PRN ×2 (11:55→18:27)
[2021-05-01] MEDS: ACETAMINOPHEN 325 MG TABLET PO PRN (14:48)
--- NOTE | 2021-05-01 15:55 | NUR ---
MS RN NOTES BLOOD TRANSFUSION STARTED; VS WNL.
--- NOTE | 2021-05-01 18:37 | NUR ---
MS RN NOTES PATIENT WAS COMPLAINING OF SOB. APPLIED O2 AT 4 LPM. SATURATING 92-95% MD NOTIFIED AND MADE AWARE. NO ORDERS GIVEN.
--- NOTE | 2021-05-01 18:59 | NUR ---
PILOT CAN ROUTER CLOSING NOTES PATIENT REMAINS IN BED, AWAKE, A/O X2, BLOOD TRANSFUSION IS STILL GOING. PATIENT ON O2 AT 4LPM VIA NASAL CANNULA SATING 92-95%. BREATHING IS EVEN AND UNLABORED, NO SOB NOTED AT THIS TIME. NO COMPLAINS OF PAIN. IV ACCESS ON R WRIST G #20 SL, BERNARDA MIDLINE AND R CHEST PERMACATH. ALL NEEDS ATTENDED DURING THE DAY. SAFETY PRECAUTIONS IN PLACE; BED IN LOW POSITION AND LOCKED, RAILS UP X2, CALL LIGHT WITHIN REACH. WILL ENDORSE TO BOOKMOBILE LIBRARIAN NURSE.
--- NOTE | 2021-05-01 19:30 | NUR ---
RN OPENING NOTE PATIENT IN BED AWAKE, A/O X 2 AT THIS TIME. PATIENT S/P BLOOD TRANSFUSION, NS FLUSH STILL ONGOING. PATIENT IS CURRENTLY ON 4 L VIA NASAL CANULA. PATIENT EXPERIENCING DIFFICULTY BREATHING, REACTION WHEN BLOOD TRANSFUSION WAS ON GOING. DAYSHIFT RN REPORTS PATIENT HAVING DIARRHEA X 2. PATIENT HAS A BERNARDA MIDLINE AND R WRIST 20 G, PATENT AND INTACT. DRESSING PRESENT ON RLE. SAFETY MEASURES IN PLACE: BED LOCKED AND IN LOWEST POSITION, CALL LIGHT WITHIN REACH, SIDE RAILS UP, BED ALARM ON. WILL MONITOR PATIENT CLOSELY.
[2021-05-01] MEDS: *INSULIN REGULAR(HUMULIN R)HUM 100 UNIT/ML VIAL SQ PRN (23:00)
--- NOTE | 2021-05-01 23:30 | NUR ---
RN NOTE PATIENT'S BS 423 MG/DL. DR. GUPTA ORDERS TO FOLLOW SLIDING SCALE. 10 UNITS REG INSULIN GIVEN.
[2021-05-02] MEDS: MEROPENEM 500 MG in IV NS 0.9% 50 ML IV SCH ×2 (01:13→12:19)
[2021-05-02 06:45] LABS: BASOPHILS # (AUTO) 0.1 K/uL (0.0-0.2); BASOPHILS % (AUTO) 0.4 % (0.0-2.0); EOSINOPHILS % (AUTO) 1.2 % (0.0-6.0); HEMATOCRIT 28 % (39-51); HEMOGLOBIN 8.8 g/dL (13.5-17.5); LYMPHOCYTES # (AUTO) 0.9 K/uL (0.8-4.8); LYMPHOCYTES % (AUTO) 4.5 % (20.0-44.0); MEAN CORPUSCULAR HGB CONC 32 g/dl (31.0-36.0); MEAN CORPUSCULAR VOLUME 91 fL (80-96); MONOCYTES # (AUTO) 1.1 K/uL (0.1-1.30); MONOCYTES % (AUTO) 5.7 % (2.0-12.0); NEUTROPHILS # (AUTO) 17.2 K/uL (1.8-8.9); NEUTROPHILS % (AUTO) 88.2 % (43.0-81.0); PLATELET COUNT (AUTO) 290 K/uL (150-450); RED BLOOD CELL COUNT(AUTO) 3.03 MIL/uL (4.5-6.0); WHITE BLOOD COUNT (AUTO) 19.5 K/uL (4.3-11.0)
[2021-05-02 06:46] LABS: CALCIUM, SERUM 8.1 mg/dL (8.5-10.1); POTASSIUM 4.1 mmol/L (3.5-5.1)
[2021-05-02] MEDS: INSULIN REGULAR, HUMAN 100 UNIT/ML 3 ML VIAL SQ PRN ×3 (07:08→17:14)
[2021-05-02] MEDS: BLOOD SUGAR DIAGNOSTIC 1 EACH STRIP VI SCH ×4 (07:10→22:24)
--- NOTE | 2021-05-02 07:15 | NUR ---
RN NOTE BS 324 MG/DL, 12 UNITS GIVEN FOR COVERAGE.
--- NOTE | 2021-05-02 07:20 | NUR ---
RN NOTE PATIENT IN BED, EYES CLOSED EASILY AWAKENED. PATIENT STILL ON 4 L OF O2 SUPPLEMENT. TOLERATING WELL. BREATHING EVEN AND UNLABORED. SAFETY MEASURES IMPLEMENTED, WOUND CARE RENDERED. ENDORSED TO DAY SHIFT NURSE FOR MARIAH.
[2021-05-02] MEDS: INSULIN ASPART/LISPRO 100 UNIT/ML CARTRIDGE SQ SCH ×3 (07:35→18:26)
[2021-05-02] MEDS: PANTOPRAZOLE 40 MG TABLET.DR PO SCH (07:37)
[2021-05-02] MEDS: SEVELAMER CARBONATE 800 MG POWD.PACK GT SCH ×3 (07:37→18:22)
--- NOTE | 2021-05-02 07:55 | NUR ---
RN HOSPICE OPENING NOTES RECEIVED PATIENT IN BED, ASLEEP, ON O2 AT 4LPM VIA NASAL CANNULA. BREATHING IS EVEN AND UNLABORED, NO SOB NOTED. NO S/S OF PAIN NOTED. IV ACCESS ON R WRIST G #20 SL, BERNARDA MIDLINE PRESENT AND INTACT. R CHEST PERMACATH. SAFETY PRECAUTIONS IN PLACE; BED IN LOW POSITION AND LOCKED, RAILS UP X2, CALL LIGHT WITHIN REACH. WILL CONTINUE TO MONITOR PATIENT.
[2021-05-02 08:00] VITALS: BP 142/67
[2021-05-02] MEDS: cetrizine 10 MG TABLET PO SCH (09:23)
[2021-05-02] MEDS: TIMOLOL MAL/DORZOLAM HCL OPHTH 10 ML BOTTLE EACHEYE SCH ×2 (09:23→16:23)
[2021-05-02] MEDS: FLUCONAZOLE (100 MG) 100 MG TABLET PO SCH (09:23)
[2021-05-02] MEDS: GABAPENTIN 100 MG CAPSULE PO SCH ×2 (09:23→16:23)
[2021-05-02] MEDS: ASPIRIN 81 MG TAB.CHEW PO SCH (09:23)
[2021-05-02] MEDS: METOPROLOL TARTRATE 25 MG TABLET PO SCH ×2 (09:24→21:00)
[2021-05-02] MEDS: FLUTICASONE PROPIONATE 16 GM BOTTLE NS SCH (09:24)
[2021-05-02] MEDS: MEGESTROL ACETATE SUSP 400 MG/10 ML UDC PO SCH ×2 (09:24→16:23)
[2021-05-02] MEDS: NEPRO VAN 237 ML CAN PO SCH ×4 (09:24→21:29)
[2021-05-02] MEDS: Z GUARD REMEDY 2 OZ OINT TP SCH (09:25)
[2021-05-02] MEDS: GENTAMICIN 0.1% OINT 15 GM TUBE TP SCH ×2 (09:25→16:17)
[2021-05-02] MEDS: INSULIN GLARGINE, 100 UNIT/ML CARTRIDGE SQ SCH ×2 (09:27→17:16)
[2021-05-02] MEDS: HEPARIN SODIUM, PORCINE 5000 UNITS/1 ML VIAL SQ SCH ×2 (09:30→22:23)
[2021-05-02] MEDS: HYDROCODONE/APAP 5/325MG TABLET PO PRN (09:39)
[2021-05-02 16:00] VITALS: BP 110/57
--- NOTE | 2021-05-02 16:18 | NUR ---
SS Consult: SS Consult requested for "multiple wounds from home". The pt. is a 65 year old male on the Ebuzzing and Teads due to recent "fall as he tripped and c/of pain in the right knee and leg, fevers for 1 day and chills and not feeling well" per EMR. Upon SS consult, the pt. is lethargic and only nodding to questions. Pt. nodded yes to livingat home with and having a caregiver. P.t gave SW verbal consent to speak with . SW left voicemail to , Yvette Jones [phone]. SW will follow up and determine support at home :caregiver, IHSS, HH etc.
--- NOTE | 2021-05-02 18:20 | NUR ---
MS RN NOTES PATIENT STARTED HEMODIALYSIS.
--- NOTE | 2021-05-02 18:48 | NUR ---
GREY IRON MOLDER CLOSING NOTES PATIENT IN BED, ASLEEP, ON O2 AT 4LPM VIA NASAL CANNULA. BREATHING IS EVEN AND UNLABORED, NO SOB NOTED DURING THE DAY. NO COMPLAINS OF PAIN AT THIS TIME. IV ACCESS ON R WRIST G #20 SL, BERNARDA MIDLINE PRESENT AND INTACT. R CHEST PERMACATH. DRESSING CLEAN AND INTACT. ALL NEEDS ATTENDED DURING THE DAY. SAFETY PRECAUTIONS IN PLACE; BED IN LOW POSITION AND LOCKED, RAILS UP X2, CALL LIGHT WITHIN REACH. WILL ENDORSE TO PLISSE MACHINE OPERATOR NURSE.
--- NOTE | 2021-05-02 19:59 | NUR ---
MS RN OPENING NOTES PATIENT IN BED, CURRENTLY UNDERGOING DIALYSIS, ALERT/ORIENTED X 2. PT ON 4 LPM OF OXYGEN VIA NASAL CANNULA, NO S/S OF DISTRESS OR SOB NOTED, BREATHING EVEN AND UNLABORED. BERNARDA MIDLINE INTACT, RIGHT WRIST #20G IV SALINE LOCKED, RIGHT CHEST PERMACATH INTACT. SAFETY MEASURES IN PLACE: CALL LIGHT WITHIN REACH, BED LOCKED IN LOW POSITION, SIDE RAILS UP X 3, BED ALARM ON. WILL CONTINUE TO MONITOR PATIENT
[2021-05-02 20:00] VITALS: BP 103/65
--- NOTE | 2021-05-02 22:00 | NUR ---
MS RN NOTES PER DIALYSIS NURSE, NO FLUIDS WERE TAKEN OUT BECAUSE PATIENT'S BP WAS LOW. STATED THAT WHEN BLOOD WAS RETURNED THE BLOOD PRESSURE WENT UP AND THAT PATIENT IS DEHYDRATED. PLACED PT ON NS @ 5ML/HR ORDERED. WILL CONTINUE TO MONITOR
[2021-05-02] MEDS: *INSULIN REGULAR(HUMULIN R)HUM 100 UNIT/ML VIAL SQ PRN (22:25)
[2021-05-03] MEDS: MEROPENEM 500 MG in IV NS 0.9% 50 ML IV SCH ×2 (00:11→12:59)
[2021-05-03 06:40] LABS: BASOPHILS # (AUTO) 0.1 K/uL (0.0-0.2); BASOPHILS % (AUTO) 0.4 % (0.0-2.0); EOSINOPHILS % (AUTO) 1.4 % (0.0-6.0); HEMATOCRIT 24 % (39-51); HEMOGLOBIN 8.1 g/dL (13.5-17.5); LYMPHOCYTES # (AUTO) 0.9 K/uL (0.8-4.8); LYMPHOCYTES % (AUTO) 5.7 % (20.0-44.0); MEAN CORPUSCULAR HGB CONC 33 g/dl (31.0-36.0); MEAN CORPUSCULAR VOLUME 89 fL (80-96); MONOCYTES % (AUTO) 6.8 % (2.0-12.0); NEUTROPHILS # (AUTO) 13.1 K/uL (1.8-8.9); NEUTROPHILS % (AUTO) 85.7 % (43.0-81.0); PLATELET COUNT (AUTO) 247 K/uL (150-450); RED BLOOD CELL COUNT(AUTO) 2.72 MIL/uL (4.5-6.0); WHITE BLOOD COUNT (AUTO) 15.3 K/uL (4.3-11.0)
[2021-05-03 07:00] LABS: BILIRUBIN,TOTAL 0.8 mg/dL (0.2-1.0); CALCIUM, SERUM 8.2 mg/dL (8.5-10.1); CREATININE 4.2 mg/dL (0.6-1.3); POTASSIUM 3.9 mmol/L (3.5-5.1); TOTAL PROTEIN, SERUM 6.3 g/dL (6.4-8.2)
[2021-05-03 07:06] LABS: ALBUMIN 1.1 g/dL (3.4-5.0)
[2021-05-03] MEDS: HYDROCODONE/APAP 5/325MG TABLET PO PRN (07:14)
[2021-05-03] MEDS: INSULIN REGULAR, HUMAN 100 UNIT/ML 3 ML VIAL SQ PRN (07:18)
--- NOTE | 2021-05-03 07:30 | NUR ---
MS RN NOTES PT RESTING IN BED, ALERT AND ORIENTED X 2. PATIENT STATED HE WAS IN PAIN SO NORCO 5-325 MG PO GIVEN ORDERED. WOUND CARE ON SACRUM AND GROIN DONE. PT STABLE ON 4 LPM OF OXYGEN, NO S/S OF DISTRESS OR SOB NOTED, BREATHING EVEN AND UNLABORED. SAFETY MEASURES IN PLACE: CALL LIGHT WITHIN REACH, BED LOCKED IN LOW POSITION, SIDE RAILS UP X 3, BED ALARM ON. ENDORSED TO DAY SHIFT NURSE FOR CONTINUITY OF CARE
[2021-05-03 08:00] VITALS: BP 114/84
[2021-05-03] MEDS: BLOOD SUGAR DIAGNOSTIC 1 EACH STRIP VI SCH ×4 (08:11→21:27)
[2021-05-03] MEDS: INSULIN ASPART/LISPRO 100 UNIT/ML CARTRIDGE SQ SCH ×3 (08:13→17:45)
[2021-05-03] MEDS: PANTOPRAZOLE 40 MG TABLET.DR PO SCH (08:33)
[2021-05-03] MEDS: FLUTICASONE PROPIONATE 16 GM BOTTLE NS SCH (08:58)
[2021-05-03] MEDS: GABAPENTIN 100 MG CAPSULE PO SCH ×2 (08:58→17:38)
[2021-05-03] MEDS: cetrizine 10 MG TABLET PO SCH (08:58)
[2021-05-03] MEDS: TIMOLOL MAL/DORZOLAM HCL OPHTH 10 ML BOTTLE EACHEYE SCH ×2 (08:58→17:39)
[2021-05-03] MEDS: ASPIRIN 81 MG TAB.CHEW PO SCH (08:58)
[2021-05-03] MEDS: MEGESTROL ACETATE SUSP 400 MG/10 ML UDC PO SCH ×2 (08:58→17:38)
[2021-05-03] MEDS: FLUCONAZOLE (100 MG) 100 MG TABLET PO SCH (08:58)
[2021-05-03] MEDS: SEVELAMER CARBONATE 800 MG POWD.PACK GT SCH ×3 (08:59→18:54)
[2021-05-03] MEDS: METOPROLOL TARTRATE 25 MG TABLET PO SCH ×2 (09:01→21:00)
[2021-05-03] MEDS: Z GUARD REMEDY 2 OZ OINT TP SCH (09:01)
[2021-05-03] MEDS: GENTAMICIN 0.1% OINT 15 GM TUBE TP SCH ×2 (09:01→18:00)
[2021-05-03] MEDS: NEPRO VAN 237 ML CAN PO SCH ×4 (09:01→21:00)
[2021-05-03] MEDS: HEPARIN SODIUM, PORCINE 5000 UNITS/1 ML VIAL SQ SCH ×2 (09:02→21:20)
[2021-05-03] MEDS: INSULIN GLARGINE, 100 UNIT/ML CARTRIDGE SQ SCH ×2 (09:09→17:42)
[2021-05-03 16:00] VITALS: BP 123/60
[2021-05-03] MEDS: ACETAMINOPHEN 325 MG TABLET PO PRN (17:39)
--- NOTE | 2021-05-03 19:00 | NUR ---
MS RN CLOSING NOTE PATIENT ASLEEP ON BED. ALERT AND ORIENTED X 2. ABLE TO MAKE NEEDS KNOWN. DENIES PAIN AT THIS TIME. CONTINUES ON O2 4L VIA NC WITH NO S/SX OF RESPIRATORY DISTRESS NOTED. IV ACCESS TO RIGHT UPPER ARM MIDLINE INTACT, PATENT AND SALINE LOCKED. CONTINUES ON IV ABX. RIGHT CHEST WALL WALDO CATH IN PLACE. DRESSINGS TO RIGHT LOWER LEXTREMITY AND GLUTEAL CREASE BOTH CLEAN, DRY AND INTACT. CALL LIGHT WITHIN REACH. ASPIRATION, FALL AND SAFETY PRECAUTIONS MAINTAINED. WILL ENDORSE PLAN OF CARE TO NEXT SHIFT.
--- NOTE | 2021-05-03 19:25 | NUR ---
MS/RN OPENING NOTE RECEIVED PATIENT RESTING IN BED. AWAKE, ALERT AND ORIENTED X 2. ABLE TO MAKE NEEDS KNOWN. DENIES PAIN AT THIS TIME. CONTINUES ON O2 4L VIA NC WITH NO S/SX OF RESPIRATORY DISTRESS NOTED. IV ACCESS TO RIGHT UPPER ARM MIDLINE INTACT, PATENT AND SALINE LOCKED. CONTINUES ON IV ABX. RIGHT CHEST WALL WALDO CATH IN PLACE. DRESSINGS TO RIGHT LOWER LEG AND GLUTEAL CREASE BOTH CLEAN, DRY AND INTACT. CALL LIGHT WITHIN REACH. ASPIRATION, FALL AND SAFETY PRECAUTIONS MAINTAINED. WILL CONTINUE TO MONITOR.
[2021-05-03 20:00] VITALS: BP 118/59
--- NOTE | 2021-05-03 22:00 | NUR ---
MS/RN NOTE RECEIVED CALL FROM DR. FRANCES WHO STATES PATIENT WILL BE TRANSFERRING TO [facility] FOR SURGICAL PROCEDURE. MD SPOKE WITH FAMILY WHO IS IN AGREEMENT. PATIENT MADE AWARE. WILL AWAIT CALL FROM [facility].
--- NOTE | 2021-05-03 23:00 | NUR ---
MS/RN NOTE RECEIVED CALL FROM ARIK AT [facility]. STATES PATIENT WILL TRANSFER IN AM TO [place]. WILL HAVE DISCHARGE PAPERWORK AND IMAGING CD READY.
--- NOTE | 2021-05-04 01:00 | NUR ---
MS/RN NOTE SPOKE WITH ARIK FROM [facility]. REQUESTING COVID-19 TEST TO BE FAXED OVER. TEST RESULT FAXED TO ARIK AT [phone]
[2021-05-04] MEDS: MEROPENEM 500 MG in IV NS 0.9% 50 ML IV SCH (01:06)
--- NOTE | 2021-05-04 04:45 | NUR ---
MS/RN NOTE SPOKE WITH ARIK FROM [facility] TRANSFERS. [facility]ANCE BOOKED FOR 0900 [employer]. PATIENT WILL BE TRANSFERRED TO [facility] UNIT 2E (ONCOLOGY). PHONE NUMBER FOR RN REPORT: [phone] Addendum: 05/04/21 at 0521 by ZE SINHA RN ROOM [id number] BED 1
[2021-05-04] MEDS: BLOOD SUGAR DIAGNOSTIC 1 EACH STRIP VI SCH (06:24)
--- NOTE | 2021-05-04 06:25 | NUR ---
MS/RN CLOSING NOTE PATIENT CURRENTLY SLEEPING IN BED. ALERT AND ORIENTED X 2. ABLE TO MAKE NEEDS KNOWN. DENIES PAIN AT THIS TIME. CONTINUES ON O2 4L VIA NC WITH NO S/SX OF RESPIRATORY DISTRESS NOTED. IV ACCESS TO RIGHT UPPER ARM MIDLINE INTACT, PATENT AND SALINE LOCKED. CONTINUES ON IV ABX. RIGHT CHEST WALL WALDO CATH IN PLACE. DRESSINGS TO RIGHT LOWER LEG AND GLUTEAL CREASE BOTH CLEAN, DRY AND INTACT. CALL LIGHT WITHIN REACH. ASPIRATION, FALL AND SAFETY PRECAUTIONS MAINTAINED. WILL ENDORSE PLAN OF CARE TO ONCOMING SHIFT.
[2021-05-04 06:59] LABS: BILIRUBIN,TOTAL 0.8 mg/dL (0.2-1.0); CALCIUM, SERUM 7.5 mg/dL (8.5-10.1); CREATININE 5.5 mg/dL (0.6-1.3); POTASSIUM 4.7 mmol/L (3.5-5.1); TOTAL PROTEIN, SERUM 6.3 g/dL (6.4-8.2)
--- NOTE | 2021-05-04 07:10 | NUR ---
MS RN OPENING NOTE PATIENT ASLEEP ON BED. ALERT AND ORIENTED X 2. ABLE TO MAKE NEEDS KNOWN. DENIES PAIN AT THIS TIME. CONTINUES ON O2 4L VIA NC WITH NO S/SX OF RESPIRATORY DISTRESS NOTED. IV ACCESS TO RIGHT UPPER ARM MIDLINE INTACT, PATENT AND SALINE LOCKED. CONTINUES ON IV ABX. RIGHT CHEST WALL WALDO CATH IN PLACE. DRESSINGS TO RIGHT LOWER EXTREMITY AND GLUTEAL CREASE BOTH CLEAN, DRY AND INTACT. PATIENT FOR TRANSFER TO [facility] FOR HIGHER LEVEL OF CARE. PATIENT HEALTH TEACHING DONE AND VERBALIZED UNDERSTANDING. COMFORT MEASURES PROVIDED. CALL LIGHT WITHIN REACH. ASPIRATION, FALL AND SAFETY PRECAUTIONS MAINTAINED. WILL CONTINUE MONITORING PATIENT.
[2021-05-04 07:13] LABS: ALBUMIN 1.2 g/dL (3.4-5.0)
[2021-05-04 07:24] LABS: BASOPHILS # (AUTO) 0.1 K/uL (0.0-0.2); BASOPHILS % (AUTO) 0.3 % (0.0-2.0); HEMATOCRIT 25 % (39-51); HEMOGLOBIN 8.2 g/dL (13.5-17.5); LYMPHOCYTES # (AUTO) 0.8 K/uL (0.8-4.8); LYMPHOCYTES % (AUTO) 5.2 % (20.0-44.0); MEAN CORPUSCULAR HGB CONC 33 g/dl (31.0-36.0); MEAN CORPUSCULAR VOLUME 90 fL (80-96); MONOCYTES # (AUTO) 1.1 K/uL (0.1-1.30); MONOCYTES % (AUTO) 7.7 % (2.0-12.0); NEUTROPHILS # (AUTO) 12.8 K/uL (1.8-8.9); NEUTROPHILS % (AUTO) 85.8 % (43.0-81.0); PLATELET COUNT (AUTO) 245 K/uL (150-450); RED BLOOD CELL COUNT(AUTO) 2.75 MIL/uL (4.5-6.0); WHITE BLOOD COUNT (AUTO) 14.9 K/uL (4.3-11.0)
[2021-05-04 08:00] VITALS: BP 115/60
[2021-05-04] MEDS: HEPARIN SODIUM, PORCINE 5000 UNITS/1 ML VIAL SQ SCH (09:00)
[2021-05-04] MEDS: ASPIRIN 81 MG TAB.CHEW PO SCH (09:00)
--- NOTE | 2021-05-04 09:00 | NUR ---
MS RN NOTE PATIENT FOR TRANSFER TO [facility]. REPORT GIVEN TO ASHLEY ORELLANA . PATIENT WILL GO TO ROOM 1213 BED 1. WOUND CARE DONE AND PATIENT UNABLE TO SIGN RIGHT NOW. AWAITING PICK-UP BY AMBULANCE. WILL CONTINUE TO MONITOR PATIENT.
--- NOTE | 2021-05-04 09:35 | NUR ---
MS RN NOTE PATIENT DISCHARGED ORDERED TO [facility]. PATIENT ENDORSED ACCORDINGLY, IN STABLE CONDITION.
[2021-05-04] MEDS: MEGESTROL ACETATE SUSP 400 MG/10 ML UDC PO SCH (10:44)
[2021-05-04] MEDS: SEVELAMER CARBONATE 800 MG POWD.PACK GT SCH (10:45)
[2021-05-04] MEDS: FLUCONAZOLE (100 MG) 100 MG TABLET PO SCH (10:45)
[2021-05-04] MEDS: GABAPENTIN 100 MG CAPSULE PO SCH (10:46)
[2021-05-04] MEDS: cetrizine 10 MG TABLET PO SCH (10:46)
[2021-05-04 10:47] VITALS: BP 115/60
[2021-05-04] MEDS: METOPROLOL TARTRATE 25 MG TABLET PO SCH (10:47)
[2021-05-04] MEDS: PANTOPRAZOLE 40 MG TABLET.DR PO SCH (10:47)
[2021-05-10 05:07] LABS: *SPE A/G RATIO 0.4 (0.7-1.7); *SPE ALPHA-1-GLOBULIN 0.4 g/dL (0.0-0.4); *SPE ALPHA-2-GLOBULIN 1.1 g/dL (0.4-1.0); *SPE BETA GLOBULIN 0.6 g/dL (0.7-1.3); *SPE M-SPIKE Not Observed g/dL (Not Observed)
== END 2021-05-04 12:18 | disposition short-term general hospital (02) | DRG 871 ==
LOC: ER 09:53 → TELE 12:20 → ICU 20:59 → TELE 04-27 15:23 → MED 05-01 10:13
PROVIDERS: ADMIT Internal Medicine; ATTEND Internal Medicine
PROC: 05H533Z Insertion of Infusion Device into Right Subclavian Vein, Percutaneous Approach (ICD-10-PCS; principal; 2021-04-19)
PROC: B546ZZA Ultrasonography of Right Subclavian Vein, Guidance (ICD-10-PCS; 2021-04-19)
PROC: 5A1D70Z Performance of Urinary Filtration, Intermittent, Less than 6 Hours Per Day (ICD-10-PCS; 2021-04-19)
PROC: 02HV33Z Insertion of Infusion Device into Superior Vena Cava, Percutaneous Approach (ICD-10-PCS; 2021-04-24)
PROC: B548ZZA Ultrasonography of Superior Vena Cava, Guidance (ICD-10-PCS; 2021-04-24)
PROC: 05H533Z Insertion of Infusion Device into Right Subclavian Vein, Percutaneous Approach (ICD-10-PCS; 2021-04-25)
PROC: B546ZZA Ultrasonography of Right Subclavian Vein, Guidance (ICD-10-PCS; 2021-04-25)
PROC: 30233N1 Transfusion of Nonautologous Red Blood Cells into Peripheral Vein, Percutaneous Approach (ICD-10-PCS; 2021-04-26)
DX: A41.9 Sepsis, unspecified organism (principal); I21.4 Non-ST elevation (NSTEMI) myocardial infarction; N18.6 End stage renal disease; G92 Toxic encephalopathy; E43 Unspecified severe protein-calorie malnutrition; R65.21 Severe sepsis with septic shock; I50.33 Acute on chronic diastolic (congestive) heart failure; I13.2 Hypertensive heart and chronic kidney disease with heart failure and with stage 5 chronic kidney disease, or end stage renal disease; L03.115 Cellulitis of right lower limb; I69.354 Hemiplegia and hemiparesis following cerebral infarction affecting left non-dominant side; E87.2 Acidosis; J90 Pleural effusion, not elsewhere classified; J98.11 Atelectasis; B37.89 Other sites of candidiasis; E11.22 Type 2 diabetes mellitus with diabetic chronic kidney disease; Z99.2 Dependence on renal dialysis; Z20.822 Contact with and (suspected) exposure to COVID-19; D63.1 Anemia in chronic kidney disease; D69.6 Thrombocytopenia, unspecified; E83.39 Other disorders of phosphorus metabolism; E78.5 Hyperlipidemia, unspecified; G89.29 Other chronic pain; J45.909 Unspecified asthma, uncomplicated; I25.2 Old myocardial infarction; I25.10 Atherosclerotic heart disease of native coronary artery without angina pectoris; H54.62 Unqualified visual loss, left eye, normal vision right eye; I80.01 Phlebitis and thrombophlebitis of superficial vessels of right lower extremity; R74.01 Elevation of levels of liver transaminase levels; E83.9 Disorder of mineral metabolism, unspecified; Z68.20 Body mass index [BMI] 20.0-20.9, adult; S80.821A Blister (nonthermal), right lower leg, initial encounter; X58.XXXA Exposure to other specified factors, initial encounter; Y93.9 Activity, unspecified; Y92.009 Unspecified place in unspecified non-institutional (private) residence as the place of occurrence of the external cause; L98.8 Other specified disorders of the skin and subcutaneous tissue; E80.6 Other disorders of bilirubin metabolism; F41.9 Anxiety disorder, unspecified; G47.00 Insomnia, unspecified; L89.156 Pressure-induced deep tissue damage of sacral region; E88.09 Other disorders of plasma-protein metabolism, not elsewhere classified; R19.5 Other fecal abnormalities; B96.5 Pseudomonas (aeruginosa) (mallei) (pseudomallei) as the cause of diseases classified elsewhere; W19.XXXA Unspecified fall, initial encounter; B95.2 Enterococcus as the cause of diseases classified elsewhere; B96.89 Other specified bacterial agents as the cause of diseases classified elsewhere; E11.65 Type 2 diabetes mellitus with hyperglycemia; M72.8 Other fibroblastic disorders; H40.9 Unspecified glaucoma; Z79.4 Long term (current) use of insulin; Z79.82 Long term (current) use of aspirin; Z87.891 Personal history of nicotine dependence
CPT/HCPCS: 36410; 36415; 36569; 71045-TC; 73700-TC; 73718-TC; 74181-TC; 76705-TC; 80048-TC; 80053-TC; 80076-TC; 80202-TC; 82272-TC; 82533; 82728-TC; 82962-TC; 83540-TC; 83605-TC; 83735-TC; 83880; 84100-TC; 84155; 84165; 84484-TC; 85025-TC; 85385-TC; 85610-TC; 85652-TC; 85730-TC; 86140-TC; 86301; 86706; 86850-TC; 87040-TC; 87070-TC; 87081-TC; 87186-TC; 87340; 90935-TC; 93307-TC; 93971-TC; 94799-TC; A4216; A6253; A6403; C9803; G0378; J0692; J0885; J1170; J1644; J1720; J1815; J2020; J2185; J2543; J3370; J7030; J7040; J7050; J7060; P9016; P9047